=== PATIENT | male | born 1970 | race Caucasian/White ===

== ENCOUNTER 2017-06-02 23:26 | Emergency (ER) | payer OTHER ==
[~2017-06-02] VITALS: Ht 170.2 cm; Wt 105.6 kg
[2017-06-02 23:37] VITALS: TEMP 36.9; Ht 170.2 cm; Wt 105.6 kg
[2017-06-03] MEDS ORDERED: LIDOCAINE HCL 1% 20 ML VIAL ONE (00:18)
[2017-06-03] MEDS ORDERED: CEPHALEXIN 500MG HOME PACK 1 EA BTL PO ONE (01:45)
[2017-06-03] MEDS ORDERED: CEPH500C2 PO (01:52)
[2017-06-03 01:57] VITALS: BP 116/73; PULSE 82; O2SAT 99
--- NOTE | 2017-06-03 03:14 | EMERGENCY ROOM VISIT NOTE ---
History First contact with patient: 23:42 Chief Complaint: EAR PAIN Stated Complaint: SWELLING TO LT EAR, DISCOLORED History of Present Illness The patient is a 46 year old male who presents to the Emergency Room with complaints of left ear hematoma after he hit it on the wall when he tripped. He has had a prior hematoma to the left ear. Patient denies head injury, neck pain, chest pain, dyspnea, facial pain, inner ear pain, numbness, tingling. No other concerns per patient. No loss of consciousness. Review of Systems A 6 system review of systems was completed with positives and pertinent negatives listed in the HPI. Past Medical/Surgical History Nephrectomy Social History Smoking Status: Former Smoker Smokeless Tobacco Use: Yes Alcohol Use: occasionally Drug Use: none Marital Status: Housing Status: lives with family Occupation Status: employed Current/Historical Medications Scheduled Cephalexin Monohydrate (Keflex), 500 MG PO QID Physical Exam Vital Signs Date Time Temp Pulse Resp B/P (MAP) Pulse Ox O2 Delivery O2 Flow Rate FiO2 06/03/17 01:57 82 20 116/73 99 06/02/17 23:37 36.9 99 18 137/85 97 Room Air Physical Exam VITALS: Vitals are noted on the nurse's note and reviewed by myself. Vital signs stable. GENERAL: Pleasant male, in no acute distress, nondiaphoretic, well-developed well-nourished. SKIN: Capillary reflex less than 2 seconds. HEENT: Normocephalic. PERRLA. EOMI. Nares patent. Mucous membranes moist. Neck is supple without nuchal rigidity. EARS: Right External auditory canals clear, tympanic membrane pearly jackson without erythema or effusion: Left auricle with hematoma present extending to the canal, tympanic membrane pearly jackson without erythema or effusion no hemotympanum, no mastoid tenderness bilaterally HEART: Regular rate and rhythm without murmurs gallops or rubs. LUNGS: Clear to auscultation bilaterally without wheezes, rales or rhonchi. No retractions or accessory muscle use. MUSCULOSKELETAL: No gross musculoskeletal defects. NEURO: Patient was alert and oriented to person place and time. Normal sensation to light and sharp touch. No focal neurological deficits. Medical Decision & Procedures Medications Administered Medications (Trade) Dose Ordered Sig/Radha Route Start Time Stop Time Status Last Admin Dose Admin Cephalexin Monohydrate (Keflex 500MG Home Pack) 1 homepack NOW ONCE PO 06/03/17 01:45 06/03/17 01:46 DC 06/03/17 01:56 1 HOMEPACK Procedure Incision & Drainage Indication: Left auricle hematoma. Location: Left auricle Verbal consent was obtained after the risks and benefits were explained, including but not limited to bleeding, scarring, infection, pain, and bone/joint /nerve damage. At this time, the risks of the procedure are less than the risks of NOT performing the procedure. A time out was taken and the correct patient and site identified. The skin was prepped with betadine and a sterile field set. The ear was anesthetized with 1 ml of 1% lidocaine without epinephrine. The auricle was drained with an 18-gauge needle and copious amounts of blood was removed.. Packing placed and sutured for compression of the auricle and a compression gauze was placed. Detailed wound care instructions and signs and symptoms of worsening infection reviewed with the patient. No complications and the patient tolerated the procedure well. ED Course Prior records reviewed and summarized as above. Triage Nursing notes reviewed. Additional history obtained from family. The patient's history was concerning for auricle hematoma. Differential diagnosis: Etiologies such as hematoma, tympanic membrane rupture, cellulitis, abscess, as well as others were entertained.. Physical examination: The physical examination was consistent with auricle hematoma ER treatment provided: Drainage and packing as above, Keflex On reassessment the patient felt better. Diagnostics interpreted by me: Deferred I consulted oral plastics, Dr. Tran, and will follow-up with the patient outpatient next week. He recommends antibiotics and drainage and packing as above. This appears to be isolated left auricle hematoma.. Patient was started on antibiotics. The blood was removed and packing was placed. This was sutured down. Compression gauze was then placed. He tolerated procedure well. He was strongly encouraged to follow-up with orofacial plastics in a few days and to take medications as directed. He was advised to return immediately for fevers, pain, worsening signs or symptoms or as needed. By the evaluation outlined above emergent etiologies such as abscess, tympanic membrane rupture, as well as others were deemed relatively unlikely. The pt informed about the findings as listed above. All questions were answered and pleased with the treatment. Return instructions were outlined and the patient was discharged in stable condition. Outpatient prescription management: keflex Referral: The patient was orofacial plastics for follow-up in 2 to 3 days for a recheck of the current condition. Case reviewed with my attending Medical Decision as above Medication Reconcilliation Current Medication List: was personally reviewed by me Blood Pressure Screening Patient's blood pressure: Normal blood pressure Impression Primary Impression: Hematoma of auricle Departure Information Dispostion Home / Self-Care Condition GOOD Prescriptions Cephalexin Monohydrate (KEFLEX) 500 Mg Cap 500 MG PO QID for 6 Days, #24 CAP Prov: Jaleesa Espino .[place] 06/03/17 Referrals Justin Tran D.M.D. Forms WORK / SCHOOL INSTRUCTIONS, HOME CARE DOCUMENTATION FORM, IMPORTANT VISIT INFORMATION Patient Instructions My [facility] Additional Instructions Cephalexin(Keflex) 500mg: Take one pill four times daily for 7 days for your skin infection. All antibiotics can cause diarrhea. If this occurs and you feel worse or it does not resolve in 1-2 days follow up with your doctor or return to the Emergency Department as this could be signs of serious underlying problems. Any medication can cause an allergic reaction, stop the pills immediately and return to the ER for rash, hives, breathing difficulties, or swelling. Leave compression gauze in place. You can change out the 4 x 4 dressing if the bleeding soaks through. You then need to reapply the compression gauze. Follow up with oral facial plastics on Monday, call for an appointment. Sutures and packing gauze should repeat removed in 3-5 days. Return to ER sooner for fevers, redness, pain, worsening signs or symptoms or as needed. Problem Qualifiers Primary Impression: Hematoma of auricle Encounter type: initial encounter Laterality: left Qualified Codes: S00.432A - Contusion of left ear, initial encounter
== END 2017-06-03 01:59 | disposition home or self-care (01) ==
LOC: C.EDB 23:28
DX: S00.432A Contusion of left ear, initial encounter (principal); W22.01XA Walked into wall, initial encounter; Z87.891 Personal history of nicotine dependence

== ENCOUNTER → 2017-08-28 | Outpatient (CLI) | payer OTHER | END | disposition home or self-care (01) | LOC: C.LAB 20:07 | DX: Z02.83 Encounter for blood-alcohol and blood-drug test (principal) ==

== ENCOUNTER 2023-01-14 09:32 | Inpatient (IN) ==
[2023-01-14] MEDS ORDERED: SODIUM CHLORIDE 0.9% 1000ML 2,000 ML IV ONE (10:41)
[2023-01-14] MEDS ORDERED: ACETAMINOPHEN 1,000 MG/100 ML VIAL IV STA (10:41)
[2023-01-14 11:21] LABS: Hematocrit (blood only) 45.2 % (42.0-52.0); Hemoglobin 15.8 g/dl (14.0-18.0); Immature Granulocytes # (auto) 0.01 K/uL (0.01-0.20); Immature Granulocytes % (auto) 0.3 %; Lymphocytes # (auto) 0.68 K/uL (1.2-3.4); Lymphocytes % (auto) 17.5 %; Mean Corpuscular Hemoglobin 29.3 pg (25.0-34.0); Mean Corpuscular Volume 83.9 fL (80.0-100.0); Mean Platelet Volume 10.1 fL (9.4-12.4); Monocytes # (auto) 0.37 K/uL (0.11-0.59); Monocytes % (auto) 9.5 %; Neutrophils # (auto) 2.82 K/uL (1.40-6.50); Neutrophils % (auto) 72.7 %; Platelet Count 164 K/uL (130-400); RDW Coefficient of Variation 13.2 % (11.5-14.5); RDW Standard Deviation 40.2 fL (36.4-46.3); Red Blood Count 5.39 M/uL (4.70-6.10); White Blood Count 3.88 K/ul (4.8-10.8)
--- NOTE | 2023-01-14 11:30 | XRay Report ---
XR chest 1V portable HISTORY: Sepsis COMPARISON: None. FINDINGS: There are low lung volumes. No pneumothorax. No pleural effusions. The heart is enlarged. T here is mild central pulmonary vascular congestion without overt edema. No focal lung consolidations to suggest a pneumonia. IMPRESSION: Mild cardiomegaly with mild congestive change. ACT 112: Negative or not required by law. Electronically signed by: Florentino London M.D. 01/14/2023 11:29 AM
[2023-01-14 11:44] LABS: Albumin Level 4.5 gm/dl (3.4-5.0); BUN Creatinine Ratio 20.2 (10-20); Bilirubin Direct 0.2 mg/dl (0-0.2); Bilirubin,Total 0.7 mg/dl (0.2-1.0); Calcium 9.3 mg/dl (8.6-10.3); Creatinine Clr Calc Pharmacy 101.6 ml/min; Est GFR (African American) 95.9 ml/min; Est GFR (Non-African American) 82.7 ml/min; Magnesium 2.2 mg/dl (1.7-2.4); Phosphorus 2.5 mg/dl (2.5-4.9); Potassium 3.9 mmol/L (3.5-5.1); Total Protein 7.3 gm/dl (6.0-8.3)
[2023-01-14 11:47] LABS: Prothrombin Time 11.4 Seconds (9.0-12.0)
[2023-01-14 11:50] LABS: Troponin I High Sensitivity 3.9 pg/ml (0-20)
[2023-01-14 12:01] LABS: Lyme Ab IgG w/WB Rflx Negative (Negative)
[2023-01-14 12:06] LABS: Appearance Urine Clear (Clear); Bacteria Urine Automated Negative (Negative); Bilirubin Urine Negative (Negative); Blood Urine Negative (Negative); Color Urine Dark Yellow; Glucose Urine UA Negative (Negative); Ketones Urine 3+ (Negative); Leukocyte Esterase Urine Negative (Negative); Nitrite Urine Negative (Negative); Protein Urine 1+ (Negative); RBC Urine Automated 0-4 /hpf (0-4); Specific Gravity Urine 1.035 (1.000-1.030); Urobilinogen Urine Negative (Negative)
[2023-01-14] MEDS ORDERED: OPTIRAY 320 500ml IV ONE (12:07)
[2023-01-14 12:26] LABS: Lyme Ab IgM w/WB Rflx Equivocal (Negative)
[2023-01-14 12:37] LABS: Amphetamines+Metham, Urine Neg (Neg); Barbiturates, Urine Neg (Neg); Benzodiazepine, Urine Neg (Neg); Cocaine, Urine Neg (Neg); MDMA (Ecstacy), Urine Neg (Neg); Methadone, Urine Neg (Neg); Opiate, Urine Neg (Neg); Phencyclidine, Urine Neg (Neg)
[2023-01-14 13:00] LABS: Adenovirus PCR Not Detected (NotDetected); Bordetella parapertussis PCR Not Detected (NotDetected); Bordetella pertussis PCR Not Detected (NotDetected); Chlamydia pneumoniae PCR Not Detected (NotDetected); Coronavirus 229E PCR Not Detected (NotDetected); Coronavirus CoV-2 (COVID19)PCR Not Detected (NotDetected); Coronavirus HKU1 PCR Not Detected (NotDetected); Coronavirus NL63 PCR Not Detected (NotDetected); Coronavirus OC43PCR Not Detected (NotDetected); Human Metapneumovirus PCR Not Detected (NotDetected); Influenza A PCR Not Detected (NotDetected); Influenza B PCR Not Detected (NotDetected); Mycoplasma pneumoniae PCR Not Detected (NotDetected); Parainfluenza Virus 1 PCR Not Detected (NotDetected); Parainfluenza Virus 2 PCR Not Detected (NotDetected); Parainfluenza Virus 3 PCR Not Detected (NotDetected); Parainfluenza Virus 4 PCR Not Detected (NotDetected); Respiratory Syncytial VirusPCR Not Detected (NotDetected); Rhinovirus/Enterovirus PCR Not Detected (NotDetected)
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
[2023-01-14 13:44] LABS: C Reactive Protein 1.2 mg/dl (0-0.5)
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
[2023-01-14] MEDS ORDERED: LORazepam 1 MG TAB SL STA (16:02)
[2023-01-14] MEDS ORDERED: XYLOCAINE 1%/SOD BICARB 20 ML VIAL INFIL ONE (16:38)
[2023-01-14] MEDS ORDERED: LORazepam 2 MG/1 ML VIAL ONE (16:41)
--- NOTE | 2023-01-14 18:26 | Communication Note ---
Date of Service: January 14, 2023 I was consulted by Dr. Forte. The patient has had a change in mental status for a few days. He was attempting to obtain CSF to rule out meningitis but he was unsuccessful. I obtained the history from the patient's due to the patient being obtunded. The stated already providing consent for the spinal tap. I performed the spinal tap under sterile technique. I identified the L4-5 interspace while the patient was in the sitting position. I cleaned the area with duraprep. 1% lidocaine was injected at the site. a 22G quincke needle was advanced until CSF was obtained, attempt x 1. There was no heme or paresthesias. 4 vials of CSF were obtained. Afterwards, the patient was placed in the lateral position. The patient tolerated the procedure. Care was returned to the ER department.
[2023-01-14] MEDS ORDERED: cefTRIAXone SODIUM 2,000 MG/70 ML BAG IV STA (18:34)
[2023-01-14 18:43] LABS: Appearance CSF Hazy; CSF Count Tube # 3; Color CSF Colorless
[2023-01-14 18:44] LABS: Red Blood Cell CSF Auto 3 /uL (0-)
[2023-01-14 18:49] LABS: White Blood Cell CSF Auto 870 /uL (0-5)
[2023-01-14 18:51] LABS: CSF Glucose 49 mg/dl (40-70)
[2023-01-14 18:52] LABS: CSF Chemistry Tube # 1
[2023-01-14] MEDS ORDERED: DEXAMETHASONE SOD INJ 4 MG/ML VIAL IV STA (18:58)
--- NOTE | 2023-01-14 19:18 | XRay Report ---
XR hand LT min 3V routine CLINICAL HISTORY: Left hand pain. COMPARISON STUDY: None. FINDINGS: Suboptimal positioning of the left hand. No acute fracture or dislocation identified. There is mild soft tissue swelling. There are 2 punctate metallic foreign bodies within the soft tissues o f the thumb. Postoperative changes consistent with prior resection of the proximal carpal row. IMPRESSION: Suboptimal positioning of the left hand. However, no definite acute fracture or dislocat ion. ACT 112: Negative or not required by law. Electronically signed by: Florentino London M.D. 01/14/2023 7:17 PM
[2023-01-14] MEDS ORDERED: ACYCLOVIR SOD 850 MG in DEXTROSE 5% 250 ML IV ONE (19:30)
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
[2023-01-14 19:41] LABS: CSF Xanthrochromic No xanthochromia; Mononuclear WBC CSF Manual 99 %; Polynuclear WBC CSF Manual 1 %
[2023-01-14 20:18] LABS: Cryptococcus neoformans/ga PCR Not Detected (NotDetected); Cytomegalovirus PCR Not Detected (NotDetected); Enterovirus PCR Not Detected (NotDetected); Escherichia coli K1 PCR Not Detected (NotDetected); Haemophilius influenzae PCR Not Detected (NotDetected); Herpes Simplex Virus 1 PCR Not Detected (NotDetected); Herpes Simplex Virus 2 PCR Not Detected (NotDetected); Human Herpes Virus 6 PCR Not Detected (NotDetected); Human Parechovirus PCR Not Detected (NotDetected); Listeria monocytogenes PCR Not Detected (NotDetected); Neisseria meningitidis PCR Not Detected (NotDetected); Streptococcus agalactiae PCR Not Detected (NotDetected); Streptococcus pneumoniae PCR Not Detected (NotDetected); Varicella Zoster Virus PCR Not Detected (NotDetected)
[2023-01-14] MEDS ORDERED: HALOPERIDOL LACTATE 5 MG/ML 1 ML VIAL IV STA (20:37)
[2023-01-14] MEDS ORDERED: HALOPERIDOL LACTATE 5 MG/ML 1 ML VIAL IM STA ×2 (21:50)
[2023-01-14] MEDS ORDERED: HALOPERIDOL LACTATE 5 MG/ML 1 ML VIAL IM PRN (22:01)
[2023-01-14] MEDS: LACTATED RINGER'S 1,000 ML IV SCH (23:02)
[2023-01-14] MEDS ORDERED: OLANZapine 10 MG/2.1 ML SDV IM STA (23:45)
[2023-01-15] MEDS: LACTATED RINGER'S 1,000 ML IV SCH ×3 (05:43→22:40)
[2023-01-15 07:23] LABS: Hematocrit (blood only) 41.1 % (42.0-52.0); Hemoglobin 14.7 g/dl (14.0-18.0); Lymphocytes # (auto) 0.46 K/uL (1.2-3.4); Lymphocytes % (auto) 19.8 %; Mean Corpuscular Hemoglobin 29.5 pg (25.0-34.0); Mean Corpuscular Hgb Conc 35.8 g/dL (32.0-36.0); Mean Corpuscular Volume 82.5 fL (80.0-100.0); Mean Platelet Volume 9.6 fL (9.4-12.4); Monocytes # (auto) 0.11 K/uL (0.11-0.59); Monocytes % (auto) 4.7 %; Neutrophils # (auto) 1.75 K/uL (1.40-6.50); Neutrophils % (auto) 75.5 %; Platelet Count 154 K/uL (130-400); RDW Coefficient of Variation 13.1 % (11.5-14.5); Red Blood Count 4.98 M/uL (4.70-6.10); White Blood Count 2.32 K/ul (4.8-10.8)
[2023-01-15 07:38] LABS: Albumin Globulin Ratio 1.5 (0.9-2); Bilirubin,Total 0.6 mg/dl (0.2-1.0); C Reactive Protein 1.57 mg/dl (0-0.5); Calcium 8.7 mg/dl (8.6-10.3); Creatinine Clr Calc Pharmacy 116.9 ml/min; Est GFR (African American) 115.3 ml/min; Est GFR (Non-African American) 99.5 ml/min; Globulin 2.6 gm/dl (2.5-4.0); Magnesium 2.1 mg/dl (1.7-2.4); Phosphorus 3.7 mg/dl (2.5-4.9); Total Protein 6.6 gm/dl (6.0-8.3)
[2023-01-15 07:58] LABS: INR 1.1 (0.9-1.1); Prothrombin Time 11.8 Seconds (9.0-12.0)
[2023-01-15] MEDS ORDERED: DOXYCYCLINE HYCLATE 100 MG in DEXTROSE 5% 100 ML IV ONE (08:30)
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
--- NOTE | 2023-01-15 10:47 | Electrocardiogram Report ---
Test Reason : Blood Pressure : / mmHG Vent. Rate : 106 BPM Atrial Rate : 106 BPM P-R Int : 124 ms QRS Dur : 080 ms QT Int : 352 ms P-R-T Axes : 027 -13 005 degrees QTc Int : 467 ms Sinus tachycardia Poor R wave progression, consider anterior CT vs. lead placement vs. LVH Nonspecific T wave abnormality Abnormal ECG No previous ECGs available Confirmed by Zain Villanueva ([id number]) on 01/15/2023 10:47:16 AM Referred By: Confirmed By:Zain Villanueva
[2023-01-15] MEDS ORDERED: STAT IV Infusion **Titration per Protocol STA (11:50)
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
[2023-01-15] MEDS: dexMEDEtomidine 200 MCG/50 ML BAG IV SCH ×2 (12:37→17:09)
[2023-01-15] MEDS ORDERED: OPTIRAY 320 500ml IV ONE (13:29)
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
[2023-01-15] MEDS: ENOXAPARIN INJ 40 MG/0.4 ML SYR SQ SCH (15:40)
[2023-01-15] MEDS ORDERED: cefTRIAXone SODIUM 2,000 MG in DEXTROSE 5% 50 ML IV SCH (20:00)
[2023-01-15] MEDS: DOXYCYCLINE HYCLATE 100 MG in DEXTROSE 5% 100 ML IV SCH (20:15)
[2023-01-16] MEDS: dexMEDEtomidine 200 MCG/50 ML BAG IV SCH ×4 (01:20→20:19)
[2023-01-16 04:18] LABS: Hematocrit (blood only) 44.9 % (42.0-52.0); Hemoglobin 15.6 g/dl (14.0-18.0); Immature Granulocytes # (auto) 0.01 K/uL (0.01-0.20); Immature Granulocytes % (auto) 0.3 %; Lymphocytes # (auto) 0.91 K/uL (1.2-3.4); Lymphocytes % (auto) 23.6 %; Mean Corpuscular Hemoglobin 29.3 pg (25.0-34.0); Mean Corpuscular Hgb Conc 34.7 g/dL (32.0-36.0); Mean Corpuscular Volume 84.2 fL (80.0-100.0); Mean Platelet Volume 9.6 fL (9.4-12.4); Monocytes # (auto) 0.34 K/uL (0.11-0.59); Monocytes % (auto) 8.8 %; Neutrophils # (auto) 2.59 K/uL (1.40-6.50); Neutrophils % (auto) 67.3 %; Platelet Count 140 K/uL (130-400); RDW Coefficient of Variation 13.1 % (11.5-14.5); RDW Standard Deviation 40.3 fL (36.4-46.3); Red Blood Count 5.33 M/uL (4.70-6.10); White Blood Count 3.85 K/ul (4.8-10.8)
[2023-01-16 04:34] LABS: BUN Creatinine Ratio 16.3 (10-20); Calcium 8.6 mg/dl (8.6-10.3); Creatinine Clr Calc Pharmacy 119.6 ml/min; Est GFR (African American) 116.4 ml/min; Est GFR (Non-African American) 100.4 ml/min; Magnesium 2.2 mg/dl (1.7-2.4); Potassium 4.2 mmol/L (3.5-5.1)
[2023-01-16] MEDS: LACTATED RINGER'S 1,000 ML IV SCH ×2 (06:40→15:41)
--- NOTE | 2023-01-16 08:06 | Critical Care Progress Note ---
Date of Service January 16, 2023 Assessment & Plan (1) Rhabdomyolysis: (2) Leukopenia: (3) Encephalopathy acute: (4) Bicuspid aortic valve: (5) Meningitis: (6) Snoring: Plan Reason Critically Ill: 52-year-old male with suspected viral encephalitis PLAN: Neuro: Acute encephalopathy -Most consistent with viral encephalitis: Requesting West Nile, eastern equine encephalitis, and [place] testing -Monocytic pleocytosis rather elevated -Neurology following and requesting MRI, EEG -Patient will not remain still to obtain adequate imaging at this time -CTA of head and neck negative for any abnormality -Dexmedetomidine for agitation PRN Patient has not had any alcohol for 5 years. DTs not a possibility Resp: Tachypnea -There is no significant AA gradient, possibility of PE is low -Most likely consistent with underlying agitation CV: Bicuspid aortic valve -Following with primary care physician Fluids/Renal: Elevated CPK: -Trending down History of nephrectomy -Reports secondary to infection ID: Encephalitis with lymphopenia, monocytic pleocytosis -Suspect Lyme versus viral origin, bio fire meningitis panel negative, Lyme IgM equivocal, PCR testing pending -Lyme IgM equivocal -Continue doxycycline and Rocephin, previously given acyclovir however HSV PCR negative -HIV and RPR pending GI/Nutrition: Hypertriglyceridemia -Defer to outpatient Heme: Monitor H&H Endocrine: ICU hyperglycemia protocol --Prophylaxis VTE: Lovenox GI: None Lines: Peripheral Diet: N.p.o. Plan: In/out: -1.3 L, urine output [id number] Continue with Rocephin along with doxycycline We will try to get an opinion from ID today. Patient does have lymphopenia with monocytic infiltrate He has been afebrile. Continue with IV fluids We will add Tylenol as needed Case was discussed with patient's at bedside. I have personally spent 43 minutes of critical care time in the direct management of this patient. This is a life/limb threatening event. This includes time spent evaluating patient, direct bedside care, chart review, placing orders, interpretation of diagnostic studies, discussion with consultants, patient, and family members, as well as other required patient management activities. This time is exclusive of all separately billable procedures, and teaching time and separate from and in addition to any other critical care service time. Please note the above document was generated using voice recognition software. It may contain grammatical, syntax or spelling errors. Admission and Anticipated Discharge Date Admission Date: January 14, 2023 Subjective Patient seen and examined at bedside. He was on Precedex overnight 0.2. It was turned off to see how we will behave off of it He is tachypneic. He opens his eyes and nods yes or no. Denies any headache, no chest pain Denies any back pain right now, denies any hallucinations Review of Systems Review of Systems: All systems reviewed & are unremarkable except as noted in Subjective Physical Exam Physical Exam: Constitutional: No acute distress HEENT: EOMI, PERRLA Respiratory system: Decreased air entry bilaterally, no wheeze, no rhonchi, mild crackles bilateral lower lobes CVS: S1-S2 positive, no murmurs or gallops Abdomen: Soft, nontender, nondistended, positive bowel sounds x4 Extremities: +2 pulses bilaterally radialis/ dorsalis pedis, no cyanosis, no edema Neuro: Somnolent, opens his eyes and follows simple commands Psych: Restless mood and affect G/U: Positive [place] Skin: no rashes, warm and dry Lymphatic: no cervical or axillary lymphadenopathy Results & Data Results & Data Vital Signs (Past 12 Hours) Vital Signs Temp Pulse Resp BP Pulse Ox Pulse Ox O2 Del Method 01/16/23 06:00 96 H 30 H 168/96 H 94 Nasal Cannula 01/16/23 05:30 103 H 28 H 94 Nasal Cannula 01/16/23 05:00 102 H 30 H 168/92 H 94 Nasal Cannula 01/16/23 04:30 100 H 23 95 Nasal Cannula 01/16/23 04:00 36.7 C 102 H 28 H 154/93 H 96 Nasal Cannula 01/16/23 03:30 99 H 30 H 96 Nasal Cannula 01/16/23 03:00 105 H 27 H 139/91 97 Nasal Cannula 01/16/23 02:30 102 H 26 H 96 Nasal Cannula 01/16/23 02:00 89 26 H 131/81 97 Nasal Cannula 01/16/23 01:30 83 27 H 96 Nasal Cannula 01/16/23 01:00 87 30 H 125/92 96 Nasal Cannula 01/16/23 00:30 86 27 H 96 Nasal Cannula 01/16/23 00:00 37.1 C 76 26 H 138/88 95 Nasal Cannula 01/15/23 23:30 85 25 H 97 Nasal Cannula 01/15/23 23:00 84 29 H 146/89 H 98 Nasal Cannula 01/15/23 22:30 83 28 H 98 Nasal Cannula 01/15/23 22:00 73 27 H 132/89 98 Nasal Cannula 01/15/23 21:30 74 28 H 97 Nasal Cannula 01/15/23 21:28 98 01/15/23 21:00 72 24 128/78 97 Nasal Cannula 01/15/23 20:30 72 30 H 91 Room Air O2 Del Method O2 Flow Rate O2 Flow Rate 01/16/23 06:00 2 01/16/23 05:30 2 01/16/23 05:00 2 01/16/23 04:30 2 01/16/23 04:00 2 01/16/23 03:30 2 01/16/23 03:00 2 01/16/23 02:30 2 01/16/23 02:00 2 01/16/23 01:30 2 01/16/23 01:00 2 01/16/23 00:30 2 01/16/23 00:00 2 01/15/23 23:30 2 01/15/23 23:00 2 01/15/23 22:30 2 01/15/23 22:00 2 01/15/23 21:30 2 01/15/23 21:28 Nasal Cannula 2 01/15/23 21:00 2 01/15/23 20:30 Laboratory Results 01/16/23 03:56 01/16/23 03:56 Coding Level of Care Code 55951 CRITICAL CARE 1ST 30-74M Diagnoses Rhabdomyolysis M62.82 Leukopenia D72.810 Leukopenia type: lymphocytopenia Encephalopathy acute G93.40 Bicuspid aortic valve Q23.1 Meningitis G03.9 Snoring R06.83 Time Spent (min) 43 (2) Leukopenia Leukopenia type: lymphocytopenia Qualified Code(s): D72.810 - Lymphocytopenia
[2023-01-16] MEDS: DOXYCYCLINE HYCLATE 100 MG in DEXTROSE 5% 100 ML IV SCH ×2 (08:20→20:19)
[2023-01-16] MEDS: ENOXAPARIN INJ 40 MG/0.4 ML SYR SQ SCH (08:20)
[2023-01-16] MEDS ORDERED: ACETAMINOPHEN 1,000 MG/100 ML VIAL IV PRN (09:05)
[2023-01-16] MEDS: ACETAMINOPHEN 1,000 MG/100 ML VIAL IV PRN (09:15)
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
[2023-01-16] MEDS: cefTRIAXone SODIUM 2,000 MG in DEXTROSE 5% 50 ML IV SCH ×2 (09:57→21:29)
[2023-01-16] MEDS ORDERED: SUCCINYLCHOLINE CHLORIDE 20 MG/ML 10 ML VIAL IV ONE (10:51)
[2023-01-16] MEDS ORDERED: levoFLOXacin/D5W 750 MG/150 ML BAG IV SCH (11:00)
[2023-01-16] MEDS: AMPICILLIN 2,000 MG in SODIUM CHLOR 0.9% AD-VAN 100 ML IV SCH ×3 (13:15→19:38)
--- NOTE | 2023-01-16 14:24 | Electroencephalogram ---
EEG Procedure Note Date of Service January 16, 2023 Start / End Times Start Time: 13:27 End Time: 13:[address] David Garcia History A 52 year old male with acute encephalopathy. EEG performed for evaluaiton of epileptiform activity. Home Medication List Medication Instructions Recorded Confirmed Type acetaminophen 650 mg 650 mg PO Q8H PRN Pain 01/14/23 01/14/23 History tablet,extended release ibuprofen 200 mg tablet 400 mg PO Q8H PRN Pain 01/14/23 01/14/23 History naproxen 250 mg tablet 250 mg PO Q8H PRN Pain 01/14/23 01/14/23 History Inpatient Medication List Enoxaparin Sodium (Enoxaparin Inj 40 Mg/0.4 Ml Syr) 40 mg SQ QAM DANIAL Stop: 02/14/23 12:59 Last Admin: 01/16/23 08:20 Dose: 40 mg Documented By: Admin: 01/15/23 15:40 Dose: 40 mg Documented By: [id number] Lactated Ringer's (Lr) 1,000 mls @ 125 mls/hr IV .Q8H DANIAL Stop: 02/13/23 22:14 Last Admin: 01/16/23 06:40 Dose: 125 mls/hr Documented By: Infusion: 01/16/23 06:40 Dose: 125 mls/hr Documented By: Admin: 01/15/23 22:40 Dose: 125 mls/hr Documented By: Infusion: 01/15/23 22:20 Dose: 125 mls/hr Documented By: Admin: 01/15/23 14:20 Dose: 125 mls/hr Documented By: JBDanny Infusion: 01/15/23 13:43 Dose: 125 mls/hr Documented By: JBDanny Admin: 01/15/23 05:43 Dose: 125 mls/hr Documented By: Infusion: 01/15/23 05:43 Dose: 125 mls/hr Documented By: Admin: 01/14/23 23:02 Dose: 125 mls/hr Documented By: KAYLEE Acetaminophen (Ofirmev) 1,000 mg in 100 mls @ 400 mls/hr IV Q8H PRN PRN Reason: Pain or fever Stop: 01/19/23 09:00 Last Infusion: 01/16/23 09:31 Dose: 0 mls/hr Documented By: Admin: 01/16/23 09:15 Dose: 400 mls/hr Documented By: GPF Doxycycline Hyclate 100 mg/ (Dextrose) 110 mls @ 50 mls/hr IV Q12H DANIAL Stop: 01/17/23 20:59 Last Infusion: 01/16/23 10:26 Dose: 0 mls/hr Documented By: Admin: 01/16/23 08:20 Dose: 50 mls/hr Documented By: Infusion: 01/15/23 22:33 Dose: 0 mls/hr Documented By: Admin: 01/15/23 20:15 Dose: 50 mls/hr Documented By: SG Dexmedetomidine/Sodium Chloride (Precedex) 200 mcg in 50 mls @ 13.188 mls/hr IV .Q3H48M DANIAL; Protocol Stop: 01/19/23 11:59 Last Admin: 01/16/23 10:26 Dose: 0.4 mcg/kg/hr, 10.6 mls/hr Documented By: GPLeroy Co-signed By: BINHM Titration: 01/16/23 10:26 Dose: 0.5 mcg/kg/hr, 13.2 mls/hr Documented By: GPF Co-signed By: JLM Titration: 01/16/23 10:22 Dose: 0.5 mcg/kg/hr, 13.2 mls/hr Documented By: Titration: 01/16/23 10:01 Dose: 0.4 mcg/kg/hr, 10.6 mls/hr Documented By: Titration: 01/16/23 09:46 Dose: 0.3 mcg/kg/hr, 7.9 mls/hr Documented By: Titration: 01/16/23 07:48 Dose: 0 mcg/kg/hr, 0 mls/hr Documented By: Titration: 01/16/23 07:29 Dose: 0.15 mcg/kg/hr, 4 mls/hr Documented By: Admin: 01/16/23 01:20 Dose: 0.2 mcg/kg/hr, 5.3 mls/hr Documented By: SG Co-signed By: TMG Titration: 01/16/23 01:20 Dose: 0.2 mcg/kg/hr, 5.3 mls/hr Documented By: SG Co-signed By: TMG Titration: 01/15/23 19:15 Dose: 0.2 mcg/kg/hr, 5.3 mls/hr Documented By: EVA Co-signed By: [id number] Titration: 01/15/23 17:20 Dose: 0.2 mcg/kg/hr, 5.3 mls/hr Documented By: [id number] Admin: 01/15/23 17:09 Dose: 0.3 mcg/kg/hr, 7.9 mls/hr Documented By: [id number] Co-signed By: LINA Titration: 01/15/23 17:09 Dose: 0.3 mcg/kg/hr, 7.9 mls/hr Documented By: [id number] Co-signed By: HASEEBY Admin: 01/15/23 12:37 Dose: 0.3 mcg/kg/hr, 7.9 mls/hr Documented By: [id number] Co-signed By: SAM Ceftriaxone Sodium 2,000 mg/ (Dextrose) 70 mls @ 100 mls/hr IV Q12H DANIAL; Protocol Stop: 01/26/23 09:59 Last Infusion: 01/16/23 10:36 Dose: 0 mls/hr Documented By: Admin: 01/16/23 09:57 Dose: 100 mls/hr Documented By: JAMEL Ampicillin Sodium 2,000 mg/ (Sodium Chloride) 100 mls @ 200 mls/hr IV Q4H DANIAL; Protocol Stop: 01/26/23 11:29 Last Infusion: 01/16/23 13:52 Dose: 0 mls/hr Documented By: Admin: 01/16/23 13:15 Dose: 200 mls/hr Documented By: JAMEL Levofloxacin/Dextrose (Levaquin/D5w) 750 mg in 150 mls @ 100 mls/hr IV Q24H DANIAL; Protocol Stop: 01/26/23 10:59 Last Infusion: 01/16/23 13:16 Dose: 0 mls/hr Documented By: Admin: 01/16/23 11:09 Dose: 100 mls/hr Documented By: JAMEL Discontinued Medications Dexamethasone (Dexamethasone Sod Inj 4 Mg/Ml Vial) 10 mg IV NOW STA Stop: 01/14/23 18:59 Last Admin: 01/14/23 19:48 Dose: 10 mg Documented By: SMITA Haloperidol Lactate (Haloperidol Lactate 5 Mg/Ml 1 Ml Vial) 5 mg IM NOW STA Stop: 01/14/23 21:51 Last Admin: 01/14/23 21:55 Dose: 5 mg Documented By: KAYLEE Haloperidol Lactate (Haloperidol Lactate 5 Mg/Ml 1 Ml Vial) 1 mg IM Q4H PRN PRN Reason: delirium, agitation Stop: 02/13/23 22:00 Last Admin: 01/15/23 05:03 Dose: 1 mg Documented By: KAYLEE Sodium Chloride (Nss 1000ml) 2,000 mls @ 999 mls/hr IV .Q2H1M ONE Stop: 01/14/23 12:41 Last Infusion: 01/14/23 13:09 Dose: 0 mls/hr Documented By: Admin: 01/14/23 11:04 Dose: 999 mls/hr Documented By: CLAUDAI Acetaminophen (Ofirmev) 1,000 mg in 100 mls @ 400 mls/hr IV NOW STA Stop: 01/14/23 10:55 Last Infusion: 01/14/23 11:33 Dose: 0 mls/hr Documented By: Admin: 01/14/23 11:09 Dose: 400 mls/hr Documented By: CLAUDIA Ceftriaxone Sodium (Rocephin) 2,000 mg in 70 mls @ 100 mls/hr IV ONE STA; Protocol Stop: 01/14/23 19:15 Last Infusion: 01/14/23 20:22 Dose: 0 mls/hr Documented By: Admin: 01/14/23 19:34 Dose: 100 mls/hr Documented By: SMITA Acyclovir Sodium 850 mg/ (Dextrose) 267 mls @ 250 mls/hr IV NOW ONE; Protocol Stop: 01/14/23 20:34 Last Infusion: 01/14/23 21:02 Dose: 0 mls/hr Documented By: Admin: 01/14/23 19:57 Dose: 250 mls/hr Documented By: SMITA Doxycycline Hyclate 100 mg/ (Dextrose) 110 mls @ 50 mls/hr IV TODAY@0830 ONE Stop: 01/15/23 10:41 Last Infusion: 01/15/23 11:14 Dose: 0 mls/hr Documented By: [id number] Admin: 01/15/23 08:36 Dose: 50 mls/hr Documented By: PAUL Ioversol (Optiray 320 500ml) 118 ml IV ONCE ONE Stop: 01/14/23 12:08 Last Admin: 01/14/23 12:07 Dose: 118 ml Documented By: EDK Ioversol (Optiray 320 500ml) 115 ml IV ONCE ONE Stop: 01/15/23 13:30 Last Admin: 01/15/23 13:29 Dose: 115 ml Documented By: JAR Lidocaine HCl (Xylocaine 1%/Sod Bicarb 20 Ml Vial) Confirm Administered Dose 1 ml INFIL .STK-MED ONE Stop: 01/14/23 16:39 Last Admin: 01/14/23 16:42 Dose: 1 ml Documented By: REC Lorazepam (Lorazepam 1 Mg Tab) 1 mg SL NOW STA Stop: 01/14/23 16:03 Last Admin: 01/14/23 16:06 Dose: 1 mg Documented By: ASW Lorazepam (Lorazepam 2 Mg/1 Ml Vial) Confirm Administered Dose 2 mg .ROUTE .STK- MED ONE Stop: 01/14/23 16:42 Last Admin: 01/14/23 16:42 Dose: 1 mg Documented By: ASW Olanzapine (Olanzapine 10 Mg/2.1 Ml Sdv) 2.5 mg IM NOW STA Stop: 01/14/23 23:46 Last Admin: 01/15/23 00:20 Dose: 2.5 mg Documented By: MTR Description This is a 21 electrode EEG with a single channel dedicated to limited EKG. The electrodes were placed in accordance with the International 10-20 system. REPORT: At the onset of the EEG the patient is in an altered mental state. The background is symmetric and continous. There is loss of the normal anterior to posterior gradient. The background consist of 5-6 Hz theta activity with intermixed 2-3 Hz polymorphic delta activity. No stage II sleep transients are seen. Interpretation IMPRESSION: This is an abnormal routine EEG in a patient with altered mentation due to moderate generalized background slowing suggestive of a non specific encephalopathy. No electrographic seizures or epileptiform activity is seen.
[2023-01-16] MEDS ORDERED: RAPID SEQUENCE INDUCTION BAG ONE (23:40)
[2023-01-17] MEDS: LACTATED RINGER'S 1,000 ML IV SCH ×3 (00:16→18:34)
[2023-01-17] MEDS: AMPICILLIN 2,000 MG in SODIUM CHLOR 0.9% AD-VAN 100 ML IV SCH ×4 (00:17→12:41)
[2023-01-17] MEDS: fentaNYL citrate PF 100 MCG/2 ML VIAL IV PRN ×4 (00:17→23:14)
[2023-01-17] MEDS: dexMEDEtomidine 200 MCG/50 ML BAG IV SCH ×3 (00:25→07:13)
--- NOTE | 2023-01-17 00:25 | Communication Note ---
Date of Service: January 16, 2023 7445- Patient with decrease in spo2 and noted with sonorous respirations with shallow abdominal breathing, and less responsive. Attempted BIPAP with resultin g increase in spo2 but remains with poor VT ~200. ABG obtained with PH 7.018, and PaCO2 of >130, decision was made to intubate as optimizing BiPAP while prepping for intubation did not increase VT. Patient was intubated by Dr. Ordaz from [facility]- see separate procedure note. Patient was sedated with his Precedex infusion currently infusion and he was pharmacologically paralyzed with 160mg of Succinylcholine via Dr. Ordaz's orders. Patient was intubated with 8.0 ETT x1 attempt. Post intubation CXR is with appropriate ETT placement- will advance 1CM and adequate placement of OGT. Continue to trend EtCO2 and Pulse oximetry. Hypercarbic respiratory failure requiring intubation - wean ventilator settings as able - SBT and weaning trials when appropriate - No noted change in neurological exam- will re-evaluate with normalization of his ETCo2- consider CT head non-con- MRI with contrast in Am - Continue sedation with Precedex- Fentanyl adjunct if needed. has been updated- understands as she is a RN and voices no questions at this time. I have personally spent 30 minutes of critical care time in the direct management of this patient. This is a life/limb threatening event. This includes time spent evaluating patient, direct bedside care, chart review, placing orders, interpretation of diagnostic studies, discussion with consultants, and family members, as well as other required patient management activities. This time is exclusive of all separately billable procedures, and teaching time and separate from and in addition to any other critical care service time CC time 30 minutes Coding Level of Care Code 22190 CRITICAL CARE 1ST 30-74M
[2023-01-17] MEDS ORDERED: STAT IV Infusion **Titration per Protocol STA ×2 (00:59→13:01)
[2023-01-17] MEDS ORDERED: NOREPINEPHRINE/D5W 4 MG/250 ML IV ONE (01:01)
[2023-01-17 01:09] LABS: iSTAT Allen Test Pass; iSTAT Arterial Blood Gas HCO3 27 meg/L (19-24); iSTAT Arterial Blood Gas pCO2 46 mmHg (35-46); iSTAT Arterial Blood Gas pH 7.37 (7.35-7.45); iSTAT Arterial Blood Gas pO2 68 mmHg (80-95); iSTAT Carbon Dioxide 28 mmol/L (24-31); iSTAT FiO2 100 %; iSTAT Site R Radial
[2023-01-17] MEDS: NOREPINEPHRINE/D5W 4 MG/250 ML PLCT IV SCH ×2 (01:50→20:21)
[2023-01-17] MEDS: ACETAMINOPHEN 1,000 MG/100 ML VIAL IV PRN ×2 (01:51→10:29)
[2023-01-17] MEDS ORDERED: IBUPROFEN 800 MG TAB PO STA (01:59)
[2023-01-17 02:31] LABS: Basophils # (auto) 0.01 K/uL (0-0.2); Basophils % (auto) 0.1 %; Hematocrit (blood only) 45.6 % (42.0-52.0); Hemoglobin 15.6 g/dl (14.0-18.0); Immature Granulocytes # (auto) 0.06 K/uL (0.01-0.20); Immature Granulocytes % (auto) 0.7 %; Lymphocytes # (auto) 0.56 K/uL (1.2-3.4); Lymphocytes % (auto) 6.3 %; Mean Corpuscular Hemoglobin 29.1 pg (25.0-34.0); Mean Corpuscular Hgb Conc 34.2 g/dL (32.0-36.0); Mean Corpuscular Volume 85.1 fL (80.0-100.0); Mean Platelet Volume 9.7 fL (9.4-12.4); Monocytes # (auto) 0.62 K/uL (0.11-0.59); Neutrophils # (auto) 7.63 K/uL (1.40-6.50); Neutrophils % (auto) 85.9 %; Platelet Count 180 K/uL (130-400); RDW Coefficient of Variation 13.1 % (11.5-14.5); RDW Standard Deviation 40.3 fL (36.4-46.3); Red Blood Count 5.36 M/uL (4.70-6.10); White Blood Count 8.88 K/ul (4.8-10.8)
[2023-01-17 02:50] LABS: BUN Creatinine Ratio 12.8 (10-20); Calcium 8.7 mg/dl (8.6-10.3); Creatinine Clr Calc Pharmacy 93.5 ml/min; Est GFR (African American) 90.6 ml/min; Est GFR (Non-African American) 78.2 ml/min; Potassium 5.2 mmol/L (3.5-5.1)
[2023-01-17 04:26] LABS: iSTAT Allen Test Pass; iSTAT Art Bld Gas pCO2 Correct 27 mmHg (35-46); iSTAT Arterial Blood Gas HCO3 25 meg/L (19-24); iSTAT Arterial Blood Gas pCO2 26 mmHg (35-46); iSTAT Arterial Blood Gas pH 7.59 (7.35-7.45); iSTAT Arterial Blood Gas pO2 96 mmHg (80-95); iSTAT Arterial Blood Gas pO2 C 103; iSTAT Carbon Dioxide 25 mmol/L (24-31); iSTAT FiO2 50 %; iSTAT Hematocrit 41 % (42-52); iSTAT Hemoglobin 13.9 g/dl (14.0-18.0); iSTAT Potassium 4.3 mmol/L (3.3-5.0); iSTAT Site L Radial; iSTAT Sodium 139 mmol/L (135-144)
--- NOTE | 2023-01-17 06:17 | Emergency Department Note ---
ED Visit Note Endotracheal Intubation- I was requested to come to the ICU to perform endotracheal intubation Indication hypercapnic respiratory failure. The patient was on 100% oxygen via BiPAP prior to the procedure. He was switched to [id number]. Suction, airway equipment, RSI drugs, respiratory equipment, and appropriate personnel were prepared prior to the initiation of the procedure. A time out was taken. Induction was performed with 160 mg of IV succinylcholine. The patient had been on Precedex. After observing the clinical benefit of the medications, the airway was easily visualized utilizing a glide scope. A 8.0 size ETT tube was placed atraumatically to 25 cm using standard technique. The cuff inflated without signs of malfunction. There were bilateral breath sounds, positive colormetric change, no gastric sounds, a good capnography waveform, and post procedure pulse oximetry was 98%. There were no complications. .
--- NOTE | 2023-01-17 06:51 | XRay Report ---
XR chest 1V portable CLINICAL HISTORY: evaluate ETT placement and OGT placement COMPARISON STUDY: Chest CT January 14, 2023. Chest radiograph January 16, 2023. FINDINGS: Tip of endotracheal tube is 5.5 cm above the nelsy. Tip of nasogastric tube is below the l ower aspect of this image but at least within the distal body of the stomach. There is no pneumothora x. Small right pleural effusion is suspected. Right basilar opacity has increased. Linear left basila r opacities are noted. IMPRESSION: 1. Tip of endotracheal tube 5.5 cm above the nelsy. 2. Increase in right basilar opacity with volume loss. This could reflect right lower lobe and/or rig ht middle lobe collapse. An infectious process could appear similar. 3. Left basilar opacity which favors atelectasis. 4. Suspected small right pleural effusion. No pneumothorax. ACT 112: Negative or not required by law. Electronically signed by: Eric Reddy M.D. 01/17/2023 6:48 AM
--- NOTE | 2023-01-17 07:26 | Critical Care Progress Note ---
Date of Service January 17, 2023 Assessment & Plan (1) Rhabdomyolysis: (2) Leukopenia: (3) Encephalopathy acute: (4) Bicuspid aortic valve: (5) Meningitis: (6) Snoring: Plan Reason Critically Ill: 52-year-old male with suspected viral encephalitis PLAN: Neuro: Acute encephalopathy -Most consistent with viral encephalitis: Requesting West Nile, eastern equine encephalitis, and [place] testing -Monocytic pleocytosis rather elevated -Neurology following and requesting MRI, EEG -Patient will not remain still to obtain adequate imaging at this time -CTA of head and neck negative for any abnormality Patient has not had any alcohol for 5 years. DTs not a possibility Resp: -- VDRF Secondary to hypercapnic respiratory failure from altered mental status and history of MARCIO Continue with ventilatory support Keep RASS -1 CV: -- Shock Likely septic Continue with vasopressor support to keep MAP greater than 65 -- QTc prolonged QTC 573 on 01/17/2023 Bicuspid aortic valve -Following with primary care physician Fluids/Renal: -- FREEDOM Likely from hypotensive episode Monitor BUN/creatinine Avoid nephrotoxic medications Strict ins and outs -- Elevated CPK -Trending down History of nephrectomy -Reports secondary to infection ID: Encephalitis with lymphopenia, monocytic pleocytosis -Suspect Lyme versus viral origin, [facility] meningitis panel negative, Lyme IgM equivocal, PCR testing pending -Lyme IgM equivocal -Continue doxycycline and Rocephin, previously given acyclovir however HSV PCR negative -HIV and RPR pending GI/Nutrition: Hypertriglyceridemia -Defer to outpatient Heme: Monitor H&H Endocrine: ICU hyperglycemia protocol --Prophylaxis VTE: Lovenox GI: None Lines: Peripheral Diet: N.p.o. Plan: In/out: + 1.2 L, urine output 2200 AB.59/26/96 on PEEP 5, 50%, RR 26 Respiratory rate decreased to 20, FiO2 down to 40% Chest x-ray from today shows segmental collapse of the right lower lobe. I will start the patient on hypertonic saline nebulized and chest PT If there is still no improvement then bronchoscopy will be pursued I will start the patient on tube feeds Patient will be sent for MRI of the brain today Potassium was mildly elevated likely secondary to succinylcholine use. Repeat BMP later today to look at the potassium, continue with IV fluids but decrease rate to 75ml/hr QTc prolonged today. DC levofloxacin Case was discussed with patient's at bedside. I have personally spent 48 minutes of critical care time in the direct management of this patient. This is a life/limb threatening event. This includes time spent evaluating patient, direct bedside care, chart review, placing orders, interpretation of diagnostic studies, discussion with consultants, patient, and family members, as well as other required patient management activities. This time is exclusive of all separately billable procedures, and teaching time and separate from and in addition to any other critical care service time. Please note the above document was generated using voice recognition software. It may contain grammatical, syntax or spelling errors. Admission and Anticipated Discharge Date Admission Date: January 14, 2023 Subjective Patient seen and examined at bedside. No acute distress Patient was not on any sedation at the time of examination He was flickering his eyes spontaneously, not following any commands. Did grimace on pupillary exam Tmax 38.6 Intubated overnight for respiratory distress and hypercapnic respiratory failure Review of Systems Review of Systems: Unobtainable due to endotracheal tube Physical Exam Physical Exam: Constitutional: No acute distress HEENT: EOMI, PERRLA Respiratory system: Decreased air entry bilaterally, no wheeze, no rhonchi, mild crackles bilateral lower lobes CVS: S1-S2 positive, no murmurs or gallops Abdomen: Soft, nontender, nondistended, positive bowel sounds x4 Extremities: +2 pulses bilaterally radialis/ dorsalis pedis, no cyanosis, no edema Neuro: Breathing with the vent, spontaneously opening eyes, positive cough, positive gag, positive corneal Psych: Unable to assess G/U: Positive Aceves Skin: no rashes, warm and dry Lymphatic: no cervical or axillary lymphadenopathy Results & Data Results & Data Vital Signs (Past 12 Hours) Vital Signs Temp Pulse Resp BP Pulse Ox Pulse Ox O2 Del Method 01/17/23 07:05 58 L 01/17/23 02:30 38.6 C H 56 L 26 H 97/66 L 100 01/17/23 02:00 38.5 C H 63 22 104/71 100 01/17/23 01:46 38.2 C H 68 26 H 121/86 100 01/17/23 01:12 37.8 C H 53 L 21 87/56 L 99 01/17/23 06:00 37.6 C H 59 L 24 113/71 100 01/17/23 05:45 58 L 24 122/79 100 01/17/23 05:30 56 L 24 124/86 100 01/17/23 05:15 55 L 24 105/70 100 01/17/23 05:00 37.7 C H 62 24 103/70 100 01/17/23 04:45 57 L 24 101/73 100 01/17/23 04:30 60 24 101/67 99 01/17/23 04:20 61 24 99/65 L 99 01/17/23 04:10 59 L 24 119/72 100 01/17/23 04:00 38.1 C H 61 26 H 102/64 99 01/17/23 03:45 58 L 26 H 106/63 99 01/17/23 03:30 60 26 H 99/65 L 99 01/17/23 03:15 58 L 26 H 108/70 99 01/17/23 03:00 38.5 C H 56 L 26 H 100 01/17/23 02:20 01/17/23 04:08 58 L 24 100 01/17/23 01:00 37.8 C H 57 L 26 H 66/48 L 94 01/17/23 00:45 73 10 L 86/64 L 98 01/17/23 00:00 37.7 C H 114 H 1 L 152/105 H 95 01/16/23 23:30 71 41 H 172/130 H 87 L 01/16/23 23:00 73 39 H 186/99 H 89 L 01/16/23 19:30 Nasal Cannula 01/17/23 00:00 71 01/17/23 00:40 61 29 H 94 01/16/23 22:00 67 41 H 167/88 H 95 01/16/23 21:00 64 36 H 159/91 H 98 01/16/23 20:00 61 36 H 167/101 H 98 01/16/23 20:00 96 01/16/23 21:00 97 01/16/23 19:30 61 33 H 147/98 H 98 O2 Del Method O2 Flow Rate O2 Flow Rate FiO2 01/17/23 07:05 01/17/23 02:30 01/17/23 02:00 01/17/23 01:46 01/17/23 01:12 01/17/23 06:00 01/17/23 05:45 01/17/23 05:30 01/17/23 05:15 01/17/23 05:00 01/17/23 04:45 01/17/23 04:30 01/17/23 04:20 01/17/23 04:10 01/17/23 04:00 01/17/23 03:45 01/17/23 03:30 01/17/23 03:15 01/17/23 03:00 01/17/23 02:20 50 01/17/23 04:08 50 01/17/23 01:00 01/17/23 00:45 01/17/23 00:00 01/16/23 23:30 01/16/23 23:00 01/16/23 19:30 3 01/17/23 00:00 01/17/23 00:40 100 01/16/23 22:00 01/16/23 21:00 01/16/23 20:00 01/16/23 20:00 Nasal Cannula 3 01/16/23 21:00 Nasal Cannula 3 01/16/23 19:30 Laboratory Results 01/17/23 02:17 01/17/23 02:17 Coding Level of Care Code 84596 CRITICAL CARE EA ADD 30M Diagnoses Rhabdomyolysis M62.82 Leukopenia D72.810 Leukopenia type: lymphocytopenia Encephalopathy acute G93.40 Bicuspid aortic valve Q23.1 Meningitis G03.9 Snoring R06.83 Time Spent (min) 48 (2) Leukopenia Leukopenia type: lymphocytopenia Qualified Code(s): D72.810 - Lymphocytopenia
[2023-01-17] MEDS ORDERED: SODIUM CHLOR 7% 4 ML NEB ONE (07:40)
--- NOTE | 2023-01-17 07:58 | XRay Report ---
XR chest 1V portable HISTORY: eval for any opacities - hypoxia COMPARISON: Chest 01/14/2023. FINDINGS: No pneumothorax. The cardiac silhouette remains borderline enlarged. There are bibasilar li near densities noted. Small bilateral pleural effusions are suspected. There is mild elevation right hemidiaphragm which could represent a subpulmonic effusion. The upper lung zones remain clear. IMPRESSION: 1. Elevation of the right hemidiaphragm which could be due to a subpulmonic effusion. 2. Bibasilar densities nonspecific but may represent atelectasis. A pneumonia could also have a simil ar appearance. This has progressed within the right lung base. 3. Small bilateral pleural effusions are noted. ACT 112: Negative or not required by law. Electronically signed by: Florentino London M.D. 01/17/2023 7:57 AM
--- NOTE | 2023-01-17 08:27 | Electrocardiogram Report ---
Test Reason : Blood Pressure : / mmHG Vent. Rate : 056 BPM Atrial Rate : 056 BPM P-R Int : 118 ms QRS Dur : 084 ms QT Int : 594 ms P-R-T Axes : 024 027 020 degrees QTc Int : 573 ms Sinus bradycardia T wave abnormality, consider anterior ischemia Prolonged QT Abnormal ECG When compared with ECG of 14-JAN-2023 10:47, Vent. rate has decreased BY 50 BPM T wave inversion now evident in Anterior leads QT has lengthened Confirmed by Kam Darden ([id number] on 01/17/2023 8:27:32 AM Referred By: REFERRED SELF Confirmed By:Kam Darden
[2023-01-17 09:28] LABS: iSTAT Allen Test Pass; iSTAT Art Bld Gas pCO2 Correct 38 mmHg (35-46); iSTAT Art Bld Gas pH Corrected 7.456 (7.35-7.45); iSTAT Arterial Blood Gas HCO3 27 meg/L (19-24); iSTAT Arterial Blood Gas pCO2 37 mmHg (35-46); iSTAT Arterial Blood Gas pH 7.47 (7.35-7.45); iSTAT Arterial Blood Gas pO2 74 mmHg (80-95); iSTAT Arterial Blood Gas pO2 C 78; iSTAT Carbon Dioxide 28 mmol/L (24-31); iSTAT FiO2 50 %; iSTAT Hematocrit 39 % (42-52); iSTAT Hemoglobin 13.3 g/dl (14.0-18.0); iSTAT Potassium 3.7 mmol/L (3.3-5.0); iSTAT Site R Radial; iSTAT Sodium 141 mmol/L (135-144)
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
[2023-01-17] MEDS: cefTRIAXone SODIUM 2,000 MG in DEXTROSE 5% 50 ML IV SCH ×2 (10:17→21:02)
[2023-01-17] MEDS: DOXYCYCLINE HYCLATE 100 MG in DEXTROSE 5% 100 ML IV SCH ×2 (10:17→20:21)
[2023-01-17] MEDS: ENOXAPARIN INJ 40 MG/0.4 ML SYR SQ SCH (10:17)
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
[2023-01-17] MEDS: TUBE FEEDING WATER FLUSH OG SCH ×4 (12:41→21:58)
[2023-01-17] MEDS: PANTOprazole 40 MG in SYRINGE 0 ML IV SCH (12:41)
[2023-01-17] MEDS ORDERED: PROPOFOL BOLUS FROM BAG IV PRN (13:01)
--- NOTE | 2023-01-17 13:17 | XRay Report ---
XR chest 1V portable HISTORY: Respiratory failure. Follow-up. COMPARISON: Chest 01/17/2023. FINDINGS: The endotracheal tube terminates approximately 2 cm from the nelsy. The nasogastric tube t erminates in the distal stomach/pylorus. No pneumothorax. There are low lung volumes. Trace bilateral pleural effusions are again noted. Right basilar airspace opacity and left basilar linear densities remain unchanged. IMPRESSION: 1. Satisfactory support line placement. 2. No change in the bibasilar airspace opacities most pronounced on the right. This could be due to a spiration. 3. Trace bilateral pleural effusions again noted. ACT 112: Negative or not required by law. Electronically signed by: Florentino London M.D. 01/17/2023 1:15 PM
[2023-01-17] MEDS: MAGNESIUM SULFATE / D5W 1 GM/100 ML BAG IV SCH ×2 (13:26→15:38)
[2023-01-17] MEDS: propofoL 1,000 MG/100 ML VIAL IV SCH ×2 (13:58→21:22)
[2023-01-17] MEDS ORDERED: GADOBUTROL 65ML VIAL IV ONE (14:30)
--- NOTE | 2023-01-17 14:47 | Magnetic Resonance Report ---
MRI OF THE BRAIN COMBO CLINICAL HISTORY: Encephalopathy. COMPARISON STUDY: CT of the brain dated 01/14/2023. TECHNIQUE: MRI of the brain was performed utilizing various T1 and T2-weighted sequences in the axial , sagittal, and coronal planes. Contrast-enhanced sequences were acquired following the administratio n of 10.3 cc of Gadavist. FINDINGS: Brain parenchyma: There is minimal microangiopathic change The brain parenchyma is otherwise normal i n appearance. There is no hemorrhage or mass effect. There is no restricted diffusion to suggest acut e ischemia. No enhancing mass lesion is identified on the postcontrast images. Pro-white matter diff erentiation is preserved. No extra-axial fluid collection is seen. The cerebellar tonsils are normal in configuration. Ventricles, sulci, and cisterns: Normal in configuration. Pituitary and sella: Unremarkable. Intracranial vasculature: Normal flow voids are maintained at the skull base. Orbits: The bony orbits are grossly intact. Orbital contents are normal in appearance. Sinuses and mastoids: There is [id number] mucosal thickening within the ethmoid, sphenoid, and left maxillary sinuses. There are trace mastoid effusions. Secretions are noted in the pharynx. Calvarium: Unremarkable. Cervical cord: Partially visualized cervical spinal cord is normal in morphology and signal intensity . IMPRESSION: No acute intracranial abnormality. ACT 112: Negative or not required by law. Electronically signed by: Dom Pelayo M.D. 01/17/2023 2:46 PM
[2023-01-17] MEDS ORDERED: MIDAZOLAM HCL 5 MG/ML 2ML VIAL ONE (14:51)
[2023-01-17] MEDS ORDERED: MIDAZOLAM HCL 1 MG/ML 2ML VIAL IV STA (15:36)
--- NOTE | 2023-01-17 15:36 | Procedure Note ---
Procedure Note Date of Service January 17, 2023 Note PREOPERATIVE DIAGNOSIS: Collapse of the right lower lobe POSTOPERATIVE DIAGNOSIS: Mucous plugging of the right middle and right lower lobe PROCEDURE PERFORMED: Flexible fiberoptic bronchoscopy with bronchoalveolar lavage COMPLICATIONS: None. INDICATION: Right lower lobe collapse PROCEDURE: After obtaining an informed consent from patient's , patient was put on 100% while he was on the ventilator.. The patient blood pressure, heart rate, and respiratory rate monitoring applied and monitored continuously throughout the procedure. Subsequent to this, the patient was premedicated with 2 mg of midazolam and 50 mcg of fentanyl The bronchoscope was advanced through the ET tube. Thick secretions were appreciated in the ET tube as well as right main The trachea appeared sharp.The bronchoscope was then advanced through the nelsy, which was sharp. Mucous plugs was appreciated at RBI. It was thick and difficult to suction. Mucomyst 20% for mL was used to lyse the phlegm which was suctioned out. The scope was then advanced into the right main stem and each segment, subsegement in the right upper lobe, right middle lobe and right lower lobe were visualized. There was moderate amount of thick yellowish-green secretions which were suctioned out. There were no other findings including evidence of mass, anatomic distortions, or hemorrhage. The bronchoscope was subsequently withdrawn and advanced into the left mainstem. Again, each segment and subsegment was well visualized. No specific masses or other lesions were identified throughout the tracheobronchial tree on the left. There was minimal amount of yellowish-green secretion in the left lower lobe which were suctioned out The bronchoscope was then wedged in the right lower lobe anterior segment and bronchoalveolar lavage samples were obtained. 80 ml of saline was instilled and 30 ml of fluid was aspirated back.The bronchoscope was withdrawn and the area was suctioned clear. The bronchoscope was then withdrawn to the mainstem. The area was suctioned clear. The bronchoscope was then withdrawn. The patient tolerated the procedure well without evidence of desaturation or complications. Bronchoalveolar lavage samples were sent for cell count, Gram stain and bacterial culture, AFB culture and smear, fungal culture and smear and cytology. Recommendations: Follow-up micro and cytology Follow-up chest x-ray Please note the above document was generated using voice recognition software. It may contain grammatical, syntax or spelling errors.Any formal questions or concerns about the content, text or information contained within the body of this dictation should be directly addressed to the provider for clarification. Coding CPT Codes Pulmonary/Thoracic - Pulmonary and Thoracic: 24225 Bronchoscopy, clear airways ([id number]) Pulmonary/Thoracic - Pulmonary and Thoracic: 79944 Dx bronchoscopy/BAL ([id number]) [facility] – [place] Procedure Codes (Charges) Pulmonary/Thoracic Procedure 1: Pulmonary and Thoracic: 51366 Bronchoscopy, clear airways Procedure 2: Pulmonary and Thoracic: 29578 Dx bronchoscopy/BAL
[2023-01-17 15:50] LABS: Calcium 8.6 mg/dl (8.6-10.3); Est GFR (African American) 100.6 ml/min; Est GFR (Non-African American) 86.8 ml/min; Magnesium 2.1 mg/dl (1.7-2.4); Phosphorus 2.4 mg/dl (2.5-4.9)
--- NOTE | 2023-01-17 15:56 | Communication Note ---
Date of Service: January 17, 2023 Patient remains intubated secondary to altered mental status from presumed meningitis/encephalitis. No evidence however, of brain parenchymal changes on MRI. EEG reveals expected slowing consistent with encephalopathy. Neurologic prognosis is certainly optimistic given the negative MRI. Continue workup and abx treatment per ID. We will continue to follow.
--- NOTE | 2023-01-17 16:10 | XRay Report ---
XR chest 1V portable HISTORY: Post Bronchoscopy COMPARISON: Chest 01/17/2023. FINDINGS: Endotracheal tube terminates approximately 3 cm from the nelsy. The nasogastric tube termi nates below the diaphragm. The tip is not included on this study. There are surgical clips within lef t upper quadrant. There are low lung volumes. No pneumothorax. The cardiac silhouette remains mildly enlarged. There is mild central pulmonary vascular congestion without overt edema. Patchy bibasilar d ensities persist. Suspect trace bilateral pleural effusions. IMPRESSION: 1. Satisfactory support line placement. 2. No change in the patchy bibasilar densities. 3. No pneumothorax. ACT 112: Negative or not required by law. Electronically signed by: Florentino London M.D. 01/17/2023 4:09 PM
[2023-01-17] MEDS ORDERED: SODIUM PHOSPHATE 3 MMOL/1 ML INFUSION IV STA (16:39)
[2023-01-17] MEDS ORDERED: SODIUM PHOSPHATE 15 MMOL in DEXTROSE 5% 250 ML IV ONE (16:45)
[2023-01-17] MEDS: SODIUM CHLOR 7% 4 ML NEB NEB SCH (19:30)
[2023-01-17 21:17] LABS: Eosinophil Body Fluid Man 2 %; Fluid Mono/Macrophage 3 %; Lymphocyte Body Fluid Man 1 %; Neutrophil Body Fluid Man 94 %
[2023-01-18] MEDS: fentaNYL citrate PF 100 MCG/2 ML VIAL IV PRN ×3 (01:21→08:00)
[2023-01-18] MEDS: TUBE FEEDING WATER FLUSH OG SCH ×6 (02:30→22:54)
[2023-01-18] MEDS: LACTATED RINGER'S 1,000 ML IV SCH ×2 (03:14→20:47)
[2023-01-18] MEDS: propofoL 1,000 MG/100 ML VIAL IV SCH (05:31)
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
[2023-01-18] MEDS: SODIUM CHLOR 7% 4 ML NEB NEB SCH ×2 (07:23→19:59)
[2023-01-18] MEDS: ACETAMINOPHEN 1,000 MG/100 ML VIAL IV PRN ×2 (07:55→16:26)
[2023-01-18] MEDS: DOXYCYCLINE HYCLATE 100 MG in DEXTROSE 5% 100 ML IV SCH ×2 (07:55→20:48)
[2023-01-18] MEDS: MULTI VIT W/MINERALS LIQUID 15 ML UDP PO SCH (07:56)
[2023-01-18] MEDS: ENOXAPARIN INJ 40 MG/0.4 ML SYR SQ SCH (07:56)
--- NOTE | 2023-01-18 08:14 | Electrocardiogram Report ---
Test Reason : Blood Pressure : / mmHG Vent. Rate : 112 BPM Atrial Rate : 112 BPM P-R Int : 162 ms QRS Dur : 088 ms QT Int : 344 ms P-R-T Axes : 031 002 015 degrees QTc Int : 469 ms Sinus tachycardia Poor R wave progression, consider anterior NC vs. lead placement vs. LVH Abnormal ECG When compared with ECG of 17-JAN-2023 06:29, Vent. rate has increased BY 56 BPM T wave inversion no longer evident in Anterior leads Confirmed by Kam Darden ([id number]) on 01/18/2023 8:14:05 AM Referred By: REFERRED SELF Confirmed By:Kam Darden
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
--- NOTE | 2023-01-18 08:22 | XRay Report ---
SINGLE VIEW CHEST CLINICAL HISTORY: Respiratory failure. FINDINGS: 2 AP, portable, upright chest radiographs are compared to study dated 01/17/2023. Correlatio n is made with chest CT dated 01/14/2023. An endotracheal tube and enteric tube are unchanged in posit ion. The cardiomediastinal silhouette is top normal for projection. There are low lung volumes with d ependent atelectasis. Suspect trace pleural effusions. No pneumothorax is seen. The bony thorax is gr ossly intact. IMPRESSION: 1. Stable lines and tubes. 2. Low lung volumes with dependent atelectasis. 3. Suspect trace pleural effusions. ACT 112: Negative or not required by law. Electronically signed by: Dom Pelayo M.D. 01/18/2023 8:20 AM
[2023-01-18 08:52] LABS: Basophils # (auto) 0.01 K/uL (0-0.2); Basophils % (auto) 0.2 %; Eosinophils # (auto) 0.03 K/uL (0-0.50); Eosinophils % (auto) 0.6 %; Hematocrit (blood only) 41.9 % (42.0-52.0); Hemoglobin 14.8 g/dl (14.0-18.0); Immature Granulocytes # (auto) 0.03 K/uL (0.01-0.20); Immature Granulocytes % (auto) 0.6 %; Lymphocytes # (auto) 0.82 K/uL (1.2-3.4); Lymphocytes % (auto) 15.2 %; Mean Corpuscular Hemoglobin 28.7 pg (25.0-34.0); Mean Corpuscular Hgb Conc 35.3 g/dL (32.0-36.0); Mean Corpuscular Volume 81.4 fL (80.0-100.0); Mean Platelet Volume 9.9 fL (9.4-12.4); Monocytes # (auto) 0.36 K/uL (0.11-0.59); Monocytes % (auto) 6.7 %; Neutrophils # (auto) 4.14 K/uL (1.40-6.50); Neutrophils % (auto) 76.7 %; Platelet Count 144 K/uL (130-400); RDW Coefficient of Variation 12.7 % (11.5-14.5); RDW Standard Deviation 37.8 fL (36.4-46.3); Red Blood Count 5.15 M/uL (4.70-6.10); White Blood Count 5.39 K/ul (4.8-10.8)
[2023-01-18 09:09] LABS: Albumin Level 3.5 gm/dl (3.4-5.0); Bilirubin,Total 0.6 mg/dl (0.2-1.0); Calcium 8.8 mg/dl (8.6-10.3); Magnesium 2.1 mg/dl (1.7-2.4); Potassium 3.4 mmol/L (3.5-5.1)
[2023-01-18 09:15] LABS: Albumin Globulin Ratio 1.3 (0.9-2); BUN Creatinine Ratio 18.9 (10-20); Est GFR (African American) 123.8 ml/min; Est GFR (Non-African American) 106.8 ml/min; Globulin 2.8 gm/dl (2.5-4.0); Phosphorus 2.3 mg/dl (2.5-4.9); Total Protein 6.3 gm/dl (6.0-8.3)
[2023-01-18] MEDS ORDERED: POTASSIUM PHOS 3 MMOL/1 ML INFUSION IV STA (09:18)
[2023-01-18] MEDS ORDERED: POTASSIUM PHOSPHATE 24 MMOL in SODIUM CHLORIDE 0.9% 500 ML IV ONE (09:30)
--- NOTE | 2023-01-18 09:35 | Infectious Disease Progress Nt ---
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 Sodium Chloride (Sodium Chlor 7% 4 Ml Neb) 4 ml NEB BIDR DANIAL Stop: 02/16/23 18:59 Last Admin: 01/18/23 07:23 Dose: 4 ml Sterile Water (Tube Feeding Water Flush) 100 ml OG Q4H DANIAL Stop: 02/16/23 10:29 Last Admin: 01/18/23 05:32 Dose: 100 ml
[2023-01-18] MEDS ORDERED: fentaNYL BOLUS from BAG IV PRN (09:48)
[2023-01-18] MEDS ORDERED: STAT IV Infusion **Titration per Protocol STA (09:48)
[2023-01-18] MEDS ORDERED: fentaNYL citrate 2,500 MCG/250 ML BAG IV SCH (10:00)
[2023-01-18] MEDS: MAGNESIUM SULFATE / D5W 1 GM/100 ML BAG IV SCH ×2 (10:26→12:30)
[2023-01-18] MEDS: PANTOprazole 40 MG in SYRINGE 0 ML IV SCH (10:26)
[2023-01-18] MEDS: cefTRIAXone SODIUM 2,000 MG in DEXTROSE 5% 50 ML IV SCH ×2 (10:26→20:48)
[2023-01-18] MEDS: ICU ELECTROLYTE REPLACEMENT PROTOCOL SCH (15:53)
[2023-01-19] MEDS: TUBE FEEDING WATER FLUSH OG SCH ×6 (01:40→22:30)
[2023-01-19] MEDS: PEPTAMEN INTENSE VHP 1.0 CAL 1,000 ML BAG OG SCH ×2 (01:41→22:34)
[2023-01-19 05:27] LABS: Babesia microti DNA Not Detected (Not Detected)
[2023-01-19 05:48] LABS: BUN Creatinine Ratio 18.8 (10-20); C Reactive Protein 5.34 mg/dl (0-0.5); Calcium 8.6 mg/dl (8.6-10.3); Est GFR (African American) 116.9 ml/min; Est GFR (Non-African American) 100.9 ml/min; Magnesium 2.2 mg/dl (1.7-2.4); Phosphorus 3.5 mg/dl (2.5-4.9); Potassium 3.8 mmol/L (3.5-5.1)
[2023-01-19] MEDS: ICU ELECTROLYTE REPLACEMENT PROTOCOL SCH ×2 (06:17→19:19)
[2023-01-19] MEDS: POTASSIUM CHLORIDE 20 MEQ/15 ML UDC NG SCH ×2 (06:31→10:13)
[2023-01-19] MEDS: SODIUM CHLOR 7% 4 ML NEB NEB SCH ×2 (07:25→19:33)
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
[2023-01-19] MEDS ORDERED: FUROSEMIDE 40 MG/4 ML VIAL IV ONE (07:45)
[2023-01-19 07:57] LABS: 18KDIGG Band NON-REACTIVE; 23KDIGG Band NON-REACTIVE; 23KDIGM Band REACTIVE; 28KDIGG Band NON-REACTIVE; 30KDIGG Band NON-REACTIVE; 39KDIGG Band NON-REACTIVE; 39KDIGM Band NON-REACTIVE; 41KDIGG Band NON-REACTIVE; 41KDIGM Band NON-REACTIVE; 45KDIGG Band NON-REACTIVE; 58KDIGG Band NON-REACTIVE; 66KDIGG Band NON-REACTIVE; 93KDIGG Band NON-REACTIVE; Lyme Antibodies, WB IgG NEGATIVE (NEGATIVE); Lyme Antibodies, WB IgM NEGATIVE (NEGATIVE)
[2023-01-19] MEDS: ENOXAPARIN INJ 40 MG/0.4 ML SYR SQ SCH (08:13)
[2023-01-19] MEDS: DOXYCYCLINE HYCLATE 100 MG in DEXTROSE 5% 100 ML IV SCH ×2 (08:14→22:27)
[2023-01-19] MEDS: MULTI VIT W/MINERALS LIQUID 15 ML UDP PO SCH (08:14)
[2023-01-19 08:25] LABS: Basophils # (auto) 0.01 K/uL (0-0.2); Basophils % (auto) 0.2 %; Eosinophils # (auto) 0.09 K/uL (0-0.50); Eosinophils % (auto) 1.9 %; Hematocrit (blood only) 40.8 % (42.0-52.0); Hemoglobin 14.1 g/dl (14.0-18.0); Immature Granulocytes # (auto) 0.03 K/uL (0.01-0.20); Immature Granulocytes % (auto) 0.6 %; Lymphocytes # (auto) 0.93 K/uL (1.2-3.4); Lymphocytes % (auto) 19.4 %; Mean Corpuscular Hemoglobin 29.4 pg (25.0-34.0); Mean Corpuscular Hgb Conc 34.6 g/dL (32.0-36.0); Mean Platelet Volume 10.2 fL (9.4-12.4); Monocytes # (auto) 0.31 K/uL (0.11-0.59); Monocytes % (auto) 6.5 %; Neutrophils # (auto) 3.42 K/uL (1.40-6.50); Neutrophils % (auto) 71.4 %; Platelet Count 150 K/uL (130-400); RDW Coefficient of Variation 12.9 % (11.5-14.5); RDW Standard Deviation 40.1 fL (36.4-46.3); White Blood Count 4.79 K/ul (4.8-10.8)
--- NOTE | 2023-01-19 08:28 | Electrocardiogram Report ---
Test Reason : Blood Pressure : / mmHG Vent. Rate : 086 BPM Atrial Rate : 086 BPM P-R Int : 130 ms QRS Dur : 084 ms QT Int : 398 ms P-R-T Axes : 039 022 032 degrees QTc Int : 476 ms Normal sinus rhythm Normal ECG When compared with ECG of 18-JAN-2023 05:32, No significant change was found Confirmed by Kam Darden ([id number]) on 01/19/2023 8:27:48 AM Referred By: REFERRED SELF Confirmed By:Kam Darden
--- NOTE | 2023-01-19 09:09 | XRay Report ---
XR chest 1V portable HISTORY: while intubated- eval tubes/lines and lung narayan COMPARISON: Chest 01/18/2023. FINDINGS: Endotracheal tube terminates 1.6 cm and the nelsy. Nasogastric tube terminates below the d iaphragm. The tip is not included on this study. No pneumothorax. Bibasilar linear densities and trac e bilateral pleural effusions persist. The heart remains mildly enlarged. There is mild central pulmo nary vascular congestion without overt edema. IMPRESSION: 1. Satisfactory support line placement. 2. Bibasilar densities and trace bilateral pleural effusions persist. ACT 112: Negative or not required by law. Electronically signed by: Florentino London M.D. 01/19/2023 9:08 AM
[2023-01-19] MEDS: cefTRIAXone SODIUM 2,000 MG in DEXTROSE 5% 50 ML IV SCH ×2 (10:10→23:55)
[2023-01-19] MEDS: PANTOprazole 40 MG in SYRINGE 0 ML IV SCH (10:11)
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
[2023-01-20] MEDS: TUBE FEEDING WATER FLUSH OG SCH ×6 (02:30→21:58)
[2023-01-20 04:09] LABS: iSTAT Allen Test Pass; iSTAT Art Bld Gas pCO2 Correct 46 mmHg (35-46); iSTAT Art Bld Gas pH Corrected 7.417 (7.35-7.45); iSTAT Arterial Blood Gas HCO3 29 meg/L (19-24); iSTAT Arterial Blood Gas pCO2 45 mmHg (35-46); iSTAT Arterial Blood Gas pH 7.42 (7.35-7.45); iSTAT Arterial Blood Gas pO2 83 mmHg (80-95); iSTAT Arterial Blood Gas pO2 C 86; iSTAT Carbon Dioxide 30 mmol/L (24-31); iSTAT FiO2 30 %; iSTAT Hematocrit 42 % (42-52); iSTAT Hemoglobin 14.3 g/dl (14.0-18.0); iSTAT Potassium 4.2 mmol/L (3.3-5.0); iSTAT Site L Radial; iSTAT Sodium 141 mmol/L (135-144)
[2023-01-20 06:00] LABS: Calcium 9.5 mg/dl (8.6-10.3); Creatinine Clr Calc Pharmacy 138.2 ml/min; Est GFR (African American) 123.1 ml/min; Est GFR (Non-African American) 106.2 ml/min; Magnesium 2.3 mg/dl (1.7-2.4); Phosphorus 3.9 mg/dl (2.5-4.9); Potassium 4.2 mmol/L (3.5-5.1)
[2023-01-20 06:15] LABS: Basophils # (auto) 0.02 K/uL (0-0.2); Basophils % (auto) 0.3 %; Eosinophils # (auto) 0.09 K/uL (0-0.50); Eosinophils % (auto) 1.4 %; Hematocrit (blood only) 45.4 % (42.0-52.0); Hemoglobin 15.8 g/dl (14.0-18.0); Immature Granulocytes # (auto) 0.02 K/uL (0.01-0.20); Immature Granulocytes % (auto) 0.3 %; Lymphocytes # (auto) 0.96 K/uL (1.2-3.4); Lymphocytes % (auto) 15.3 %; Mean Corpuscular Hgb Conc 34.8 g/dL (32.0-36.0); Mean Corpuscular Volume 83.3 fL (80.0-100.0); Mean Platelet Volume 10.7 fL (9.4-12.4); Monocytes # (auto) 0.57 K/uL (0.11-0.59); Monocytes % (auto) 9.1 %; Neutrophils % (auto) 73.6 %; Platelet Count 178 K/uL (130-400); RDW Standard Deviation 38.8 fL (36.4-46.3); Red Blood Count 5.45 M/uL (4.70-6.10); White Blood Count 6.26 K/ul (4.8-10.8)
[2023-01-20] MEDS: ICU ELECTROLYTE REPLACEMENT PROTOCOL SCH ×2 (06:51→18:12)
[2023-01-20] MEDS: SODIUM CHLOR 7% 4 ML NEB NEB SCH ×2 (07:19→20:13)
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
[2023-01-20] MEDS: ACETYLCYSTEINE 20% INHAL SOLN 4ML ***DISPENSED BY RESP. INH SCH ×2 (08:02→20:13)
[2023-01-20] MEDS ORDERED: LEVALBUTEROL 1.25 MG/3 ML NEB ONE (08:04)
[2023-01-20] MEDS: DOXYCYCLINE HYCLATE 100 MG in DEXTROSE 5% 100 ML IV SCH ×2 (08:32→20:37)
[2023-01-20] MEDS: MULTI VIT W/MINERALS LIQUID 15 ML UDP PO SCH (08:32)
--- NOTE | 2023-01-20 08:48 | Critical Care Progress Note ---
Date of Service January 20, 2023 Assessment & Plan (1) Rhabdomyolysis: (2) Leukopenia: (3) Encephalopathy acute: (4) Bicuspid aortic valve: (5) Meningitis: (6) Snoring: Plan Reason Critically Ill: 52-year-old male with suspected viral encephalitis was admitted to the ICU for mental status changes. Had an LP done which showed pleocytosis but [email or web address] was negative for everything. Lyme is equivocal. Intubated for respiratory distress. PLAN: Neuro: -- Acute metabolic encephalopathy -Most consistent with viral encephalitis: Requesting West Nile, eastern equine encephalitis, and [place] testing -Monocytic pleocytosis rather elevated -Neurology following and requesting MRI, EEG -Patient will not remain still to obtain adequate imaging at this time -CTA of head and neck negative for any abnormality -Tox screen - 01/14/2023, alcohol level negative MRI brain 01/18/2023 negative for any acute abnormalities Patient has not had any alcohol for 5 years. DTs not a possibility Resp: -- VDRF Secondary to hypercapnic respiratory failure from altered mental status and history of MARCIO Continue with ventilatory support Keep RASS -1 --Right lower lobe collapse Secondary to mucous plugging, s/p bronch 01/17/2023 CV: --S/p Shock Likely septic Vasopressor support to keep MAP greater than 65 -- QTc prolonged QTC 573 on 01/17/2023 --> 469 on 01/18/2023 Bicuspid aortic valve -Following with primary care physician Fluids/Renal: -- FREEDOM Likely from hypotensive episode Monitor BUN/creatinine Avoid nephrotoxic medications Strict ins and outs -- Elevated CPK -Trending down History of nephrectomy -Reports secondary to infection ID: -- Encephalitis with lymphopenia, monocytic pleocytosis -Suspect Lyme versus viral origin, [email or web address] meningitis panel negative, Lyme IgM equivocal, PCR testing pending -Lyme IgM equivocal -Continue doxycycline and Rocephin, previously given acyclovir however HSV PCR negative -HIV and RPR negative -ID on board GI/Nutrition: Hypertriglyceridemia -Defer to outpatient Heme: Monitor H&H Endocrine: ICU hyperglycemia protocol --Prophylaxis VTE: Lovenox GI: Resolved Lines: Peripheral Diet: Tube feeds Plan: In/out: -2.8 L, urine output 4300 mL AB.42/45/83 on 04/19% Patient is more alert today. He was put on pressure support to make him exercise He is answering simple questions, moving bilateral lower extremities, today he is also moving his upper extremities. Initially the plan was to repeat LP today as there was no improvement in his mental status but today I do see improvement. I will hold back on repeating the LP Continue with tube feeds Chest x-ray from today still shows mild atelectasis of the right lower lobe. I will add Mucomyst to the hypertonic saline, continue with aggressive suctioning Case was discussed with patient's at bedside. I have personally spent 40 minutes of critical care time in the direct management of this patient. This is a life/limb threatening event. This includes time spent evaluating patient, direct bedside care, chart review, placing orders, interpretation of diagnostic studies, discussion with consultants, patient, and family members, as well as other required patient management activities. This time is exclusive of all separately billable procedures, and teaching time and separate from and in addition to any other critical care service time. Please note the above document was generated using voice recognition software. It may contain grammatical, syntax or spelling errors. Admission and Anticipated Discharge Date Admission Date: January 14, 2023 Subjective Patient seen and examined at bedside. No acute distress, no adverse events overnight He was on 25 of fentanyl and just just prior to examining it was put on hold He was awake. Tracking and following simple commands. Denied any headache, no chest pain. Still spiking low-grade fever Review of Systems Review of Systems: All systems reviewed & are unremarkable except as noted in Subjective Physical Exam Physical Exam: Constitutional: No acute distress HEENT: EOMI, PERRLA Respiratory system: Decreased air entry bilaterally, no wheeze, no rhonchi, mild crackles bilateral lower lobes CVS: S1-S2 positive, no murmurs or gallops Abdomen: Soft, nontender, nondistended, positive bowel sounds x4 Extremities: +2 pulses bilaterally radialis/ dorsalis pedis, no cyanosis, no edema Neuro: Breathing above the vent, spontaneously opening eyes, positive cough, positive gag, positive corneal, following simple commands Psych: Unable to assess G/U: Positive Aceves Skin: no rashes, warm and dry Lymphatic: no cervical or axillary lymphadenopathy Results & Data Results & Data Vital Signs (Past 12 Hours) Vital Signs Temp Pulse Pulse Resp BP Pulse Ox O2 Del Method 01/20/23 08:00 37.7 C H 121 H 25 H 155/106 H 96 CPAP, Mechanical Vent 01/20/23 08:00 01/20/23 07:28 117 H 24 94 01/20/23 07:00 37.6 C H 113 H 22 94 01/20/23 07:00 149/102 H 01/20/23 06:30 37.5 C 108 H 21 94 01/20/23 06:00 37.4 C 109 H 22 96 01/20/23 06:00 135/91 01/20/23 05:30 37.5 C 110 H 20 96 01/20/23 05:00 37.5 C 105 H 21 96 01/20/23 05:00 120/93 01/20/23 04:30 37.5 C 106 H 20 96 01/20/23 04:00 37.5 C 108 H 18 96 01/20/23 04:00 119/94 01/20/23 03:30 37.5 C 108 H 15 96 01/20/23 03:00 37.4 C 107 H 25 H 96 01/20/23 03:00 120/88 01/20/23 02:30 37.5 C 107 H 18 96 01/20/23 02:00 37.5 C 106 H 19 96 01/20/23 02:00 115/91 01/20/23 01:30 37.6 C H 110 H 17 96 01/20/23 01:00 37.6 C H 109 H 25 H 96 01/20/23 01:00 129/90 01/20/23 00:30 37.5 C 105 H 28 H 96 01/20/23 00:00 37.5 C 105 H 21 96 01/20/23 00:00 114/86 01/19/23 23:30 37.6 C H 107 H 14 96 01/19/23 23:00 37.7 C H 109 H 14 95 01/19/23 22:30 37.7 C H 109 H 18 95 01/19/23 22:29 37.7 C H 110 H 21 96 01/19/23 22:29 126/93 01/19/23 22:00 37.9 C H 110 H 21 95 01/19/23 21:30 37.8 C H 115 H 16 95 01/19/23 21:00 37.8 C H 114 H 17 96 01/19/23 22:00 Mechanical Vent 01/20/23 07:20 115 H 21 93 Mechanical Vent 01/19/23 23:58 107 H 01/20/23 04:05 110 H 18 97 01/19/23 22:21 113 H 18 95 FiO2 01/20/23 08:00 30 01/20/23 08:00 30 01/20/23 07:28 30 01/20/23 07:00 01/20/23 07:00 01/20/23 06:30 01/20/23 06:00 01/20/23 06:00 01/20/23 05:30 01/20/23 05:00 01/20/23 05:00 01/20/23 04:30 01/20/23 04:00 01/20/23 04:00 01/20/23 03:30 01/20/23 03:00 01/20/23 03:00 01/20/23 02:30 01/20/23 02:00 01/20/23 02:00 01/20/23 01:30 01/20/23 01:00 01/20/23 01:00 01/20/23 00:30 01/20/23 00:00 01/20/23 00:00 01/19/23 23:30 01/19/23 23:00 01/19/23 22:30 01/19/23 22:29 01/19/23 22:29 01/19/23 22:00 01/19/23 21:30 01/19/23 21:00 01/19/23 22:00 01/20/23 07:20 30 01/19/23 23:58 01/20/23 04:05 30 01/19/23 22:21 30 Laboratory Results 01/20/23 04:53 01/20/23 04:53 Coding Level of Care Code 83193 CRITICAL CARE 1ST 30-74M Diagnoses Rhabdomyolysis M62.82 Leukopenia D72.810 Leukopenia type: lymphocytopenia Encephalopathy acute G93.40 Bicuspid aortic valve Q23.1 Meningitis G03.9 Snoring R06.83 Time Spent (min) 40 (2) Leukopenia Leukopenia type: lymphocytopenia Qualified Code(s): D72.810 - Lymphocytopenia
[2023-01-20] MEDS: cefTRIAXone SODIUM 2,000 MG in DEXTROSE 5% 50 ML IV SCH ×2 (09:27→20:37)
[2023-01-20] MEDS: ENOXAPARIN INJ 40 MG/0.4 ML SYR SQ SCH (09:38)
[2023-01-20] MEDS: PANTOprazole 40 MG in SYRINGE 0 ML IV SCH (10:37)
--- NOTE | 2023-01-20 11:04 | XRay Report ---
XR chest 1V portable CLINICAL HISTORY: while intubated- eval tubes/lines and lung narayan TECHNIQUE: Single frontal radiograph of the chest was obtained. Comparison: Comparison is made to chest radiograph 01/19/2023 FINDINGS: Lines and tubes are stable. The cardiomediastinal silhouette is normal. Lungs are underinflated but c lear. Linear atelectasis is seen in the left lower lobe. No evidence of pleural effusion or pneumotho rax. IMPRESSION: Atelectasis in the left lower lobe. Otherwise unremarkable. ACT 112: Negative or not required by law. Electronically signed by: Dillan Jordan M.D. 01/20/2023 11:03 AM
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
--- NOTE | 2023-01-20 12:22 | Communication Note ---
Date of Service: January 20, 2023 Neurology Update: We continue to follow peripherally, encouraged by the patient's clinical process though no causative agent is identified. As to the question posed iin the ID consult from today 01/20 - there is no indication for steroids. Please continue to contact us with any further questions.
[2023-01-20] MEDS ORDERED: ACETAMINOPHEN 1000 MG/100 ML IV IV ONE (12:40)
[2023-01-20] MEDS: ACETAMINOPHEN 1,000 MG/100 ML VIAL IV PRN (12:42)
[2023-01-20 17:07] LABS: Ehrlichia chaff DNA Bld Negative (Negative)
[2023-01-20 18:09] LABS: Magnesium 2.3 mg/dl (1.7-2.4); Phosphorus 3.6 mg/dl (2.5-4.9); Potassium 4.5 mmol/L (3.5-5.1)
[2023-01-20] MEDS: PEPTAMEN INTENSE VHP 1.0 CAL 1,000 ML BAG OG SCH (18:22)
[2023-01-20] MEDS ORDERED: MIDAZOLAM HCL 1 MG/ML 2ML VIAL IV STA (20:27)
[2023-01-20] MEDS ORDERED: MIDAZOLAM HCL 1 MG/ML 2ML VIAL ONE (20:28)
--- NOTE | 2023-01-20 20:41 | Critical Care Progress Note ---
Date of Service January 20, 2023 Assessment & Plan Admission and Anticipated Discharge Date Admission Date: January 14, 2023 Results & Data Results & Data Vital Signs (Past 12 Hours) Vital Signs Temp Pulse Resp BP Pulse Ox O2 Del Method FiO2 01/20/23 18:00 37.7 C H 111 H 24 136/96 94 Mechanical Vent 25 01/20/23 17:00 37.6 C H 113 H 23 133/90 95 Mechanical Vent 01/20/23 16:00 37.5 C 110 H 22 135/101 H 95 Mechanical Vent 01/20/23 17:00 25 01/20/23 14:30 103 H 01/20/23 15:00 37.5 C 106 H 22 125/95 95 Mechanical Vent 01/20/23 13:30 111 H 16 94 25 01/20/23 14:00 37.6 C H 103 H 21 130/81 95 Mechanical Vent 01/20/23 13:00 37.8 C H 118 H 28 H 134/99 94 CPAP, Mechanical Vent 01/20/23 13:42 25 01/20/23 12:00 37.8 C H 122 H 25 H 147/107 H 95 CPAP, Mechanical Vent 30 01/20/23 11:00 37.7 C H 116 H 27 H 137/103 H 95 CPAP, Mechanical Vent 30 01/20/23 11:06 116 H 27 H 97 25 01/20/23 10:00 37.7 C H 118 H 27 H 125/99 96 CPAP, Mechanical Vent 30 01/20/23 09:00 37.7 C H 121 H 24 137/102 H 96 CPAP, Mechanical Vent 30 Coding Diagnoses
[2023-01-20] MEDS ORDERED: PROPOFOL BOLUS FROM BAG IV PRN (21:47)
[2023-01-20] MEDS ORDERED: STAT IV Infusion **Titration per Protocol STA (21:47)
[2023-01-20] MEDS: propofoL 1,000 MG/100 ML VIAL IV SCH (21:57)
[2023-01-21] MEDS: propofoL 1,000 MG/100 ML VIAL IV SCH ×5 (03:48→20:39)
[2023-01-21] MEDS: TUBE FEEDING WATER FLUSH OG SCH ×6 (03:48→20:48)
[2023-01-21] MEDS: ACETAMINOPHEN 1,000 MG/100 ML VIAL IV PRN ×2 (05:18→14:56)
[2023-01-21 05:43] LABS: BUN Creatinine Ratio 32.5 (10-20); Calcium 9.4 mg/dl (8.6-10.3); Creatinine Clr Calc Pharmacy 120.2 ml/min; Est GFR (African American) 118.1 ml/min; Est GFR (Non-African American) 101.9 ml/min; Magnesium 2.2 mg/dl (1.7-2.4); Phosphorus 3.8 mg/dl (2.5-4.9); Potassium 4.4 mmol/L (3.5-5.1)
[2023-01-21 05:46] LABS: Basophils # (auto) 0.03 K/uL (0-0.2); Basophils % (auto) 0.4 %; Eosinophils # (auto) 0.23 K/uL (0-0.50); Hematocrit (blood only) 46.5 % (42.0-52.0); Immature Granulocytes # (auto) 0.05 K/uL (0.01-0.20); Immature Granulocytes % (auto) 0.7 %; Lymphocytes # (auto) 1.06 K/uL (1.2-3.4); Lymphocytes % (auto) 13.8 %; Mean Corpuscular Hemoglobin 29.2 pg (25.0-34.0); Mean Corpuscular Hgb Conc 34.4 g/dL (32.0-36.0); Mean Corpuscular Volume 84.9 fL (80.0-100.0); Mean Platelet Volume 10.6 fL (9.4-12.4); Monocytes # (auto) 0.67 K/uL (0.11-0.59); Monocytes % (auto) 8.7 %; Neutrophils # (auto) 5.62 K/uL (1.40-6.50); Neutrophils % (auto) 73.4 %; Platelet Count 195 K/uL (130-400); RDW Coefficient of Variation 12.7 % (11.5-14.5); RDW Standard Deviation 39.1 fL (36.4-46.3); Red Blood Count 5.48 M/uL (4.70-6.10); White Blood Count 7.66 K/ul (4.8-10.8)
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
[2023-01-21] MEDS: ICU ELECTROLYTE REPLACEMENT PROTOCOL SCH ×2 (06:52→19:24)
[2023-01-21] MEDS: ACETYLCYSTEINE 20% INHAL SOLN 4ML ***DISPENSED BY RESP. INH SCH ×2 (07:13→19:13)
[2023-01-21] MEDS: SODIUM CHLOR 7% 4 ML NEB NEB SCH ×2 (07:13→19:12)
[2023-01-21] MEDS ORDERED: LEVALBUTEROL 1.25 MG/3 ML NEB ONE ×2 (07:20→19:11)
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
[2023-01-21] MEDS: DOXYCYCLINE HYCLATE 100 MG in DEXTROSE 5% 100 ML IV SCH ×2 (08:39→20:26)
[2023-01-21] MEDS: ENOXAPARIN INJ 40 MG/0.4 ML SYR SQ SCH (08:40)
[2023-01-21] MEDS: MULTI VIT W/MINERALS LIQUID 15 ML UDP PO SCH (08:40)
[2023-01-21] MEDS ORDERED: LEVALBUTEROL 1.25MG/0.5ML NEB NEB SCH (09:00)
--- NOTE | 2023-01-21 09:17 | XRay Report ---
XR chest 1V portable HISTORY: 52 years-old Male f/u acute shortness of breath COMPARISON: 01/20/2023 TECHNIQUE: AP view of the chest FINDINGS: Endotracheal tube overlies the midline, 2.3 cm superior to the nelsy. Enteric tube in stomach with d istal tip outside the [id number]. No pneumothorax. Mild subsegmental bibasilar densities with trac e pleural effusions. Bones appear grossly intact. IMPRESSION: 1. Satisfactory positioning of the endotracheal and enteric tubes. 2. Cardiomegaly without overt pulmonary edema. 3. Trace pleural effusions with persistent mild bibasilar atelectasis. ACT 112: Negative or not required by law. The above report was generated using voice recognition software. It may contain grammatical, syntax o r spelling errors. Electronically signed by: Tucker Bustos M.D. 01/21/2023 9:16 AM
[2023-01-21] MEDS: cefTRIAXone SODIUM 2,000 MG in DEXTROSE 5% 50 ML IV SCH ×2 (09:21→20:47)
[2023-01-21] MEDS: PANTOprazole 40 MG in SYRINGE 0 ML IV SCH (11:05)
[2023-01-21] MEDS: LACTULOSE SYRUP 30 GM/45 ML UDP PO SCH (11:42)
[2023-01-21] MEDS: DOCUSATE SODIUM/SENNA 50/8.6MG TAB PO SCH ×2 (11:42→20:33)
[2023-01-21] MEDS: PEPTAMEN INTENSE VHP 1.0 CAL 1,000 ML BAG OG SCH (15:37)
[2023-01-21 19:11] LABS: Magnesium 2.3 mg/dl (1.7-2.4); Potassium 4.4 mmol/L (3.5-5.1)
[2023-01-21] MEDS: LEVALBUTEROL 1.25MG/0.5ML NEB NEB SCH (19:13)
[2023-01-22] MEDS: propofoL 1,000 MG/100 ML VIAL IV SCH ×8 (01:03→21:24)
[2023-01-22] MEDS: ACETAMINOPHEN 1,000 MG/100 ML VIAL IV PRN ×2 (01:04→16:19)
[2023-01-22] MEDS: TUBE FEEDING WATER FLUSH OG SCH ×6 (02:47→22:30)
[2023-01-22 04:58] LABS: iSTAT Allen Test Pass; iSTAT Art Bld Gas pCO2 Correct 42 mmHg (35-46); iSTAT Art Bld Gas pH Corrected 7.396 (7.35-7.45); iSTAT Arterial Blood Gas HCO3 26 meg/L (19-24); iSTAT Arterial Blood Gas pCO2 41 mmHg (35-46); iSTAT Arterial Blood Gas pH 7.41 (7.35-7.45); iSTAT Arterial Blood Gas pO2 78 mmHg (80-95); iSTAT Arterial Blood Gas pO2 C 82; iSTAT Carbon Dioxide 27 mmol/L (24-31); iSTAT FiO2 25 %; iSTAT Hematocrit 43 % (42-52); iSTAT Hemoglobin 14.6 g/dl (14.0-18.0); iSTAT Potassium 4.4 mmol/L (3.3-5.0); iSTAT Site R Radial; iSTAT Sodium 137 mmol/L (135-144)
[2023-01-22 05:45] LABS: Basophils # (auto) 0.08 K/uL (0-0.2); Basophils % (auto) 0.7 %; Eosinophils # (auto) 0.38 K/uL (0-0.50); Eosinophils % (auto) 3.3 %; Hematocrit (blood only) 47.6 % (42.0-52.0); Hemoglobin 16.5 g/dl (14.0-18.0); Immature Granulocytes # (auto) 0.23 K/uL (0.01-0.20); Lymphocytes # (auto) 1.96 K/uL (1.2-3.4); Lymphocytes % (auto) 17.2 %; Mean Corpuscular Hgb Conc 34.7 g/dL (32.0-36.0); Mean Corpuscular Volume 83.8 fL (80.0-100.0); Mean Platelet Volume 10.8 fL (9.4-12.4); Monocytes # (auto) 0.78 K/uL (0.11-0.59); Monocytes % (auto) 6.8 %; Neutrophils # (auto) 7.97 K/uL (1.40-6.50); Platelet Count 211 K/uL (130-400); RDW Coefficient of Variation 12.9 % (11.5-14.5); RDW Standard Deviation 39.1 fL (36.4-46.3); Red Blood Count 5.68 M/uL (4.70-6.10)
[2023-01-22 06:05] LABS: BUN Creatinine Ratio 37.3 (10-20); Creatinine Clr Calc Pharmacy 133.8 ml/min; Est GFR (African American) 123.1 ml/min; Est GFR (Non-African American) 106.2 ml/min; Magnesium 2.3 mg/dl (1.7-2.4); Phosphorus 3.7 mg/dl (2.5-4.9); Potassium 4.3 mmol/L (3.5-5.1)
[2023-01-22] MEDS: ICU ELECTROLYTE REPLACEMENT PROTOCOL SCH ×2 (06:30→16:07)
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
[2023-01-22] MEDS ORDERED: STAT IV Infusion **Titration per Protocol STA (07:23)
[2023-01-22] MEDS: dexMEDEtomidine 200 MCG/50 ML BAG IV SCH ×6 (07:28→22:50)
[2023-01-22] MEDS: MULTI VIT W/MINERALS LIQUID 15 ML UDP PO SCH (07:28)
[2023-01-22] MEDS: DOXYCYCLINE HYCLATE 100 MG in DEXTROSE 5% 100 ML IV SCH ×2 (07:28→21:22)
[2023-01-22] MEDS: LACTULOSE SYRUP 30 GM/45 ML UDP PO SCH (07:28)
[2023-01-22] MEDS: DOCUSATE SODIUM/SENNA 50/8.6MG TAB PO SCH ×2 (07:28→21:21)
[2023-01-22] MEDS: ENOXAPARIN INJ 40 MG/0.4 ML SYR SQ SCH (07:28)
[2023-01-22] MEDS: SODIUM CHLOR 7% 4 ML NEB NEB SCH ×2 (07:43→19:14)
[2023-01-22] MEDS: ACETYLCYSTEINE 20% INHAL SOLN 4ML ***DISPENSED BY RESP. INH SCH ×2 (07:48→19:15)
[2023-01-22] MEDS ORDERED: LEVALBUTEROL 1.25 MG/3 ML NEB ONE ×2 (07:50→19:13)
[2023-01-22] MEDS: LEVALBUTEROL 1.25MG/0.5ML NEB NEB SCH ×2 (08:10→19:15)
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
--- NOTE | 2023-01-22 08:16 | XRay Report ---
XR chest 1V portable HISTORY: 52 years-old Male Resp failure acute respiratory failure COMPARISON: 01/21/2023 TECHNIQUE: AP view of the chest FINDINGS: Endotracheal tube overlies the midline, 2.8 cm superior to the nelsy. Enteric tube in stomach with d istal tip outside the [id number]. No pneumothorax. Mild subsegmental bibasilar densities with trac e pleural effusions. Mild right hemidiaphragmatic elevation. Bones appear grossly intact. IMPRESSION: 1. Satisfactory positioning of the endotracheal and enteric tubes. 2. Cardiomegaly without overt pulmonary edema. 3. Trace pleural effusions with persistent mild bibasilar opacities suggestive of atelectasis. ACT 112: Negative or not required by law. The above report was generated using voice recognition software. It may contain grammatical, syntax o r spelling errors. Electronically signed by: Tucker Bustos M.D. 01/22/2023 8:14 AM
[2023-01-22] MEDS: PEPTAMEN INTENSE VHP 1.0 CAL 1,000 ML BAG OG SCH (09:35)
[2023-01-22] MEDS: cefTRIAXone SODIUM 2,000 MG in DEXTROSE 5% 50 ML IV SCH ×2 (09:35→21:21)
[2023-01-22] MEDS: PANTOprazole 40 MG in SYRINGE 0 ML IV SCH (09:36)
[2023-01-22 22:33] LABS: Mycoplasma pneumoniae Ab, IgG <=0.90 (<=0.90); Mycoplasma pneumoniae Ab, IgM 96 U/mL (<770); Q Fever IgG, Phase I NEGATIVE; Q Fever Phase I IgM Antibody NEGATIVE; Q Fever Phase II IgG Antibody NEGATIVE; Q Fever Phase II IgM Antibody NEGATIVE; R. typhi IgG Ab NOT DETECTED; R. typhi IgM Ab NOT DETECTED; RMSF IgG Ab NOT DETECTED; RMSF IgM Ab NOT DETECTED
[2023-01-23] MEDS: TUBE FEEDING WATER FLUSH OG SCH ×5 (02:30→17:08)
[2023-01-23] MEDS: dexMEDEtomidine 200 MCG/50 ML BAG IV SCH ×15 (02:48→21:45)
[2023-01-23] MEDS: PEPTAMEN INTENSE VHP 1.0 CAL 1,000 ML BAG OG SCH (02:48)
[2023-01-23] MEDS: propofoL 1,000 MG/100 ML VIAL IV SCH ×4 (02:49→12:46)
[2023-01-23 04:46] LABS: iSTAT Allen Test Pass; iSTAT Art Bld Gas pCO2 Correct 45 mmHg (35-46); iSTAT Art Bld Gas pH Corrected 7.399 (7.35-7.45); iSTAT Arterial Blood Gas HCO3 28 meg/L (19-24); iSTAT Arterial Blood Gas pCO2 44 mmHg (35-46); iSTAT Arterial Blood Gas pH 7.41 (7.35-7.45); iSTAT Arterial Blood Gas pO2 69 mmHg (80-95); iSTAT Arterial Blood Gas pO2 C 72; iSTAT Carbon Dioxide 29 mmol/L (24-31); iSTAT FiO2 25 %; iSTAT Hematocrit 43 % (42-52); iSTAT Hemoglobin 14.6 g/dl (14.0-18.0); iSTAT Potassium 4.5 mmol/L (3.3-5.0); iSTAT Site R Radial; iSTAT Sodium 138 mmol/L (135-144)
[2023-01-23 05:54] LABS: BUN Creatinine Ratio 35.1 (10-20); Basophils # (auto) 0.06 K/uL (0-0.2); Basophils % (auto) 0.5 %; Calcium 9.3 mg/dl (8.6-10.3); Creatinine Clr Calc Pharmacy 129.8 ml/min; Eosinophils % (auto) 2.4 %; Est GFR (African American) 121.8 ml/min; Est GFR (Non-African American) 105.1 ml/min; Hematocrit (blood only) 47.2 % (42.0-52.0); Hemoglobin 15.9 g/dl (14.0-18.0); Immature Granulocytes # (auto) 0.08 K/uL (0.01-0.20); Immature Granulocytes % (auto) 0.6 %; Lymphocytes # (auto) 1.51 K/uL (1.2-3.4); Lymphocytes % (auto) 11.9 %; Magnesium 2.4 mg/dl (1.7-2.4); Mean Corpuscular Hemoglobin 29.2 pg (25.0-34.0); Mean Corpuscular Hgb Conc 33.7 g/dL (32.0-36.0); Mean Corpuscular Volume 86.6 fL (80.0-100.0); Mean Platelet Volume 10.2 fL (9.4-12.4); Monocytes # (auto) 1.02 K/uL (0.11-0.59); Neutrophils # (auto) 9.77 K/uL (1.40-6.50); Neutrophils % (auto) 76.6 %; Phosphorus 3.4 mg/dl (2.5-4.9); Platelet Count 236 K/uL (130-400); Potassium 4.4 mmol/L (3.5-5.1); RDW Coefficient of Variation 12.9 % (11.5-14.5); Red Blood Count 5.45 M/uL (4.70-6.10); White Blood Count 12.74 K/ul (4.8-10.8)
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
[2023-01-23] MEDS ORDERED: LEVALBUTEROL 1.25 MG/3 ML NEB ONE ×2 (06:51→19:37)
[2023-01-23] MEDS: ACETYLCYSTEINE 20% INHAL SOLN 4ML ***DISPENSED BY RESP. INH SCH (07:12)
[2023-01-23] MEDS: SODIUM CHLOR 7% 4 ML NEB NEB SCH (07:12)
[2023-01-23] MEDS: LEVALBUTEROL 1.25MG/0.5ML NEB NEB SCH ×2 (07:12→20:01)
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
[2023-01-23] MEDS: ICU ELECTROLYTE REPLACEMENT PROTOCOL SCH ×2 (07:41→17:03)
[2023-01-23] MEDS: LACTULOSE SYRUP 30 GM/45 ML UDP PO SCH (07:43)
[2023-01-23] MEDS: DOCUSATE SODIUM/SENNA 50/8.6MG TAB PO SCH ×2 (07:43→21:09)
[2023-01-23] MEDS: MULTI VIT W/MINERALS LIQUID 15 ML UDP PO SCH (07:43)
[2023-01-23] MEDS: ENOXAPARIN INJ 40 MG/0.4 ML SYR SQ SCH (07:43)
[2023-01-23] MEDS: DOXYCYCLINE HYCLATE 100 MG in DEXTROSE 5% 100 ML IV SCH ×2 (07:44→21:09)
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
[2023-01-23] MEDS ORDERED: fentaNYL citrate PF 100 MCG/2 ML VIAL IV PRN (08:48)
[2023-01-23] MEDS: cefTRIAXone SODIUM 2,000 MG in DEXTROSE 5% 50 ML IV SCH ×2 (08:52→21:08)
[2023-01-23] MEDS ORDERED: Nursing to Pharmacy Communication SCH ×3 (09:00→15:00)
[2023-01-23] MEDS: PANTOprazole 40 MG in SYRINGE 0 ML IV SCH (10:22)
[2023-01-23] MEDS: ACETAMINOPHEN 1,000 MG/100 ML VIAL IV PRN (12:16)
--- NOTE | 2023-01-23 13:45 | Critical Care Progress Note ---
Date of Service January 23, 2023 Assessment & Plan (1) Encephalopathy acute: (2) Bicuspid aortic valve: (3) Viral encephalitis: Plan Remains dependent on the ventilator due to increased respiratory demands and acute encephalopathy. Etiology of increased respiratory demands is somewhat unclear. Repeat MRI brain today to look for central causes. Also obtain MRI C- spine and T-spine. Consider neurology consultation. Prior EEG earlier this admission without evidence of epileptiform discharges. Patient is currently being treated for possible Lyme disease based on infectious disease recommendations. Appreciate their input. Continue broad-spectrum antibiotics per ID. HIV negative. Low threshold for repeat CT chest imaging if fevers persist. Repeat ESR and CRP. Bronchoscopy from 01/17/2023 without evidence of positive cultures. Repeat procalcitonin. Continue SIMV and daily SBT. Obtain echocardiogram given bicuspid aortic valve, leukocytosis and fevers. Also evaluate for cardiomyopathy in the context of severe tachypnea. Continue Protonix for PPI prophylaxis. Continue tube feeds. Continue to minimize sedation. We will use Precedex for agitation. CRITICAL CARE TIME - I have personally spent 38 minutes of critical care time in the direct management of this patient. This is a life/limb threatening event. This includes time spent evaluating patient, direct bedside care, chart review, placing orders, interpretation of diagnostic studies, discussion with consultants, patient, and family members, as well as other required patient management activities. This time is exclusive of all separately billable procedures, and teaching time and separate from and in addition to any other critical care service time. Admission and Anticipated Discharge Date Admission Date: January 14, 2023 Subjective Patient seen and examined. at bedside. Patient not responsive to commands. Currently on low-dose propofol and Precedex. Remains tachypneic. Review of Systems Review of Systems: Unobtainable due to endotracheal tube and Unobtainable due to reduced consciousness Physical Exam Physical Exam: Constitutional: No acute distress HEENT: EOMI, PERRLA Respiratory system: Decreased air entry bilaterally, no wheeze, no rhonchi, mild crackles bilateral lower lobes CVS: S1-S2 positive, no murmurs or gallops Abdomen: Soft, nontender, nondistended, positive bowel sounds x4 Extremities: +2 pulses bilaterally radialis/ dorsalis pedis, no cyanosis, no edema Neuro: RASS -2, breathing over the vent, positive cough, positive gag, positive corneal Psych: Unable to assess G/U: Positive Aceves Skin: no rashes, warm and dry Lymphatic: no cervical or axillary lymphadenopathy Results & Data Results & Data Vital Signs (Past 12 Hours) Vital Signs Temp Pulse Pulse Resp BP Pulse Ox O2 Del Method 01/23/23 11:37 100 H 19 92 01/23/23 11:34 94 H 01/23/23 11:34 01/23/23 10:25 Mechanical Vent 01/23/23 10:00 37.8 C H 94 H 36 H 93 01/23/23 10:00 91/73 L 01/23/23 09:45 101/73 01/23/23 09:45 37.7 C H 98 H 35 H 92 01/23/23 09:30 100/80 01/23/23 09:30 37.8 C H 105 H 32 H 92 01/23/23 09:15 37.8 C H 111 H 32 H 92 01/23/23 09:15 113/82 01/23/23 09:00 37.7 C H 117 H 39 H 91 01/23/23 08:00 37.7 C H 122 H 27 H 93 01/23/23 08:00 125/108 H 01/23/23 07:00 37.7 C H 111 H 36 H 92 01/23/23 07:00 134/96 01/23/23 06:45 37.7 C H 110 H 33 H 93 01/23/23 08:00 01/23/23 08:00 110 H 01/23/23 07:13 110 H 24 92 Mechanical Vent 01/23/23 07:13 110 H 24 92 01/23/23 04:00 01/23/23 02:00 114 H 23 93 FiO2 01/23/23 11:37 25 01/23/23 11:34 01/23/23 11:34 25 01/23/23 10:25 01/23/23 10:00 01/23/23 10:00 01/23/23 09:45 01/23/23 09:45 01/23/23 09:30 01/23/23 09:30 01/23/23 09:15 01/23/23 09:15 01/23/23 09:00 01/23/23 08:00 01/23/23 08:00 01/23/23 07:00 01/23/23 07:00 01/23/23 06:45 01/23/23 08:00 25 01/23/23 08:00 01/23/23 07:13 25 01/23/23 07:13 25 01/23/23 04:00 25 01/23/23 02:00 25 Coding Level of Care Code 16801 CRITICAL CARE 1ST 30-74M Diagnoses Encephalopathy acute G93.40 Bicuspid aortic valve Q23.1 Viral encephalitis A86 Time Spent (min) 38
[2023-01-23] MEDS ORDERED: propofoL 1,000 MG/100 ML VIAL IV SCH (14:00)
[2023-01-23] MEDS ORDERED: GADOBUTROL 65ML VIAL IV ONE (14:03)
--- NOTE | 2023-01-23 15:10 | Magnetic Resonance Report ---
MR thoracic spine wo/w con CLINICAL HISTORY: profound weakness TECHNIQUE: Multiplanar sequences through the thoracic spine were obtained, without and with intraveno us contrast. Comparison: None available at the time of this dictation. FINDINGS: The alignment is anatomical. Disks are normal in height and signal. The spinal canal and neural foramina are patent. The spinal ligaments are intact, without evidence of disruption or abnormal signal intensity. The spi nal cord is normal in signal intensity and there is no evidence of cord contusion. There is no eviden ce of an extradural, intradural, extramedullary or intramedullary lesion. Atelectasis is partially vi sualized. A tracheostomy tube is seen. IMPRESSION: No evidence of cord compression, significant neuroforaminal narrowing or ligamentous injury. No evide nce of T2 hyperintensity to suggest demyelination. No abnormal enhancement to suggest active demyelin ation. ACT 112: Negative or not required by law. Electronically signed by: Dillan Jordan M.D. 01/23/2023 3:08 PM
--- NOTE | 2023-01-23 15:11 | Magnetic Resonance Report ---
MR cervical spine wo/w con HISTORY: 52 years-old Male profound UE weakness, ?MS, ?injury chronic upper extremity weakness. COMPARISON: Brain MRI same day, CTA neck 01/15/2023. TECHNIQUE: Multiplanar, multisequence MRI of the cervical spine was obtained both with and without th e use of IV contrast. FINDINGS: Endotracheal and enteric tubes are again noted. Layering secretions within the airway. The imaged pos terior fossa structures are unremarkable. No acute fracture, subluxation, endplate erosion or signifi cant soft tissue edema. Trace facet effusions are noted, right greater than left. Normal signal withi n the cervical and imaged upper thoracic spinal cord. Minimal marrow edema at T2 is likely on a degen erative basis. Mild multilevel facet arthrosis. C2-C3: Uncovertebral hypertrophy with mild facet arthrosis. No central canal or neural foraminal narr owing. C3-C4: Uncovertebral hypertrophy with mild facet arthrosis. No central canal or neural foraminal narr owing. C4-C5: Uncovertebral hypertrophy and mild facet arthrosis. There is mild left neural foraminal narrow ing. The central canal and right neural foramen are patent. C5-C6: Mild intervertebral disc space narrowing with uncovertebral hypertrophy. Left paracentral/suba rticular disc protrusion measures 9 mm transversely. Flattening of the ventral thecal sac with mild c entral canal stenosis, AP dimension measuring 9 mm. Moderate left with mild right neural foraminal na rrowing. C6-C7: No central canal or neural foraminal narrowing. C7-T1: No central canal or neural foraminal narrowing. IMPRESSION: 1. No acute fracture or subluxation. 2. C5-C6 disc protrusion contributes to cause mild central canal stenosis with moderate left neural f oraminal narrowing. 3. Normal signal within the cervical spinal cord. 4. No abnormal enhancement. ACT 112: Negative or not required by law. The above report was generated using voice recognition software. It may contain grammatical, syntax o r spelling errors. Dictated: 01/23/2023 2:46 PM Transcribed: 01/23/2023 3:09 PM Sharmila [id number] Electronically signed by: Tucker Bustos M.D. 01/23/2023 3:09 PM
[2023-01-23] MEDS ORDERED: ACETAMINOPHEN SUSP 325 MG/10.15 ML UDC PO PRN (15:22)
[2023-01-23] MEDS ORDERED: clonazePAM 0.5 MG TAB PO STA (15:24)
--- NOTE | 2023-01-23 16:27 | Magnetic Resonance Report ---
MRI OF THE BRAIN COMBO CLINICAL HISTORY: Generalized weakness. COMPARISON STUDY: MRI of the brain dated 01/17/2023. TECHNIQUE: MRI of the brain was performed utilizing various T1 and T2-weighted sequences in the axial , sagittal, and coronal planes. Contrast-enhanced sequences were acquired following the administratio n of 10.5 cc of Gadavist. The examination is performed using multiple sclerosis protocol. FINDINGS: Brain parenchyma: There is minimal microangiopathic change. The brain parenchyma is otherwise normal in appearance. There is no hemorrhage or mass effect. There is no restricted diffusion to suggest acu te ischemia. No enhancing mass lesion is identified on the postcontrast images. Pro-white matter dif ferentiation is preserved. No extra-axial fluid collection is seen. The cerebellar tonsils are normal in configuration. Ventricles, sulci, and cisterns: Normal in configuration. Pituitary and sella: Unremarkable. Intracranial vasculature: Normal flow voids are maintained at the skull base. Orbits: The bony orbits are grossly intact. Orbital contents are normal in appearance. Sinuses and mastoids: There are bilateral mastoid effusions. Trace mucosal thickening is noted within the ethmoid sinuses. Calvarium: Unremarkable. Cervical cord: Partially visualized cervical spinal cord is normal in morphology and signal intensity . IMPRESSION: No acute intracranial abnormality. No significant change from 01/17/2023. ACT 112: Negative or not required by law. Electronically signed by: Dom Pelayo M.D. 01/23/2023 4:26 PM
[2023-01-23] MEDS ORDERED: HYDROmorphone INJ 1 MG/ML SYRINGE IV PRN (16:31)
[2023-01-23] MEDS ORDERED: methylPREDNISolone 60 MG in SYRINGE 0 ML IV ONE (16:42)
[2023-01-23] MEDS: PLASMA-LYTE A 1,000 ML IV SCH (17:07)
[2023-01-23 17:11] LABS: Albumin Level 3.6 gm/dl (3.4-5.0); Bilirubin,Total 0.5 mg/dl (0.2-1.0)
--- NOTE | 2023-01-23 17:14 | Billing Data ---
Date of Service January 23, 2023 Coding Level of Care Code 01264 SUB INP/OBS CARE
[2023-01-23] MEDS ORDERED: PLASMA-LYTE A 500 ML IV ONE (17:50)
--- NOTE | 2023-01-23 20:47 | XCELERA ---
[id number] [id number]
[2023-01-24] MEDS: dexMEDEtomidine 200 MCG/50 ML BAG IV SCH ×9 (00:06→14:58)
[2023-01-24] MEDS: TUBE FEEDING WATER FLUSH OG SCH ×3 (00:12→07:50)
[2023-01-24] MEDS: PLASMA-LYTE A 1,000 ML IV SCH (05:04)
[2023-01-24 05:09] LABS: Basophils # (auto) 0.02 K/uL (0-0.2); Basophils % (auto) 0.2 %; Eosinophils # (auto) 0.01 K/uL (0-0.50); Eosinophils % (auto) 0.1 %; Hematocrit (blood only) 39.2 % (42.0-52.0); Hemoglobin 13.7 g/dl (14.0-18.0); Immature Granulocytes % (auto) 0.8 %; Lymphocytes # (auto) 0.83 K/uL (1.2-3.4); Lymphocytes % (auto) 6.8 %; Mean Corpuscular Hemoglobin 28.9 pg (25.0-34.0); Mean Corpuscular Hgb Conc 34.9 g/dL (32.0-36.0); Mean Corpuscular Volume 82.7 fL (80.0-100.0); Mean Platelet Volume 10.1 fL (9.4-12.4); Monocytes # (auto) 0.59 K/uL (0.11-0.59); Monocytes % (auto) 4.9 %; Neutrophils # (auto) 10.61 K/uL (1.40-6.50); Neutrophils % (auto) 87.2 %; Platelet Count 221 K/uL (130-400); RDW Coefficient of Variation 12.5 % (11.5-14.5); RDW Standard Deviation 37.8 fL (36.4-46.3); Red Blood Count 4.74 M/uL (4.70-6.10); White Blood Count 12.16 K/ul (4.8-10.8)
[2023-01-24 05:24] LABS: BUN Creatinine Ratio 46.2 (10-20); Creatinine Clr Calc Pharmacy 153.8 ml/min; Est GFR (African American) 130.6 ml/min; Est GFR (Non-African American) 112.6 ml/min; Magnesium 2.3 mg/dl (1.7-2.4); Phosphorus 2.7 mg/dl (2.5-4.9); Potassium 4.4 mmol/L (3.5-5.1)
[2023-01-24 05:29] LABS: iSTAT Allen Test Pass; iSTAT Arterial Blood Gas HCO3 27 meg/L (19-24); iSTAT Arterial Blood Gas pCO2 44 mmHg (35-46); iSTAT Arterial Blood Gas pO2 63 mmHg (80-95); iSTAT Carbon Dioxide 29 mmol/L (24-31); iSTAT FiO2 30 %; iSTAT Site R Radial
[2023-01-24] MEDS: ICU ELECTROLYTE REPLACEMENT PROTOCOL SCH ×2 (06:12→18:44)
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
[2023-01-24] MEDS: ENOXAPARIN INJ 40 MG/0.4 ML SYR SQ SCH (07:50)
[2023-01-24] MEDS: DOCUSATE SODIUM/SENNA 50/8.6MG TAB PO SCH ×2 (07:51→19:47)
[2023-01-24] MEDS: DOXYCYCLINE HYCLATE 100 MG in DEXTROSE 5% 100 ML IV SCH ×2 (07:52→19:48)
--- NOTE | 2023-01-24 08:02 | XRay Report ---
SINGLE VIEW CHEST CLINICAL HISTORY: Respiratory failure. FINDINGS: An AP, portable, upright chest radiograph is compared to study dated 01/22/2023. Correlation is made with chest CT dated 01/14/2023. The examination is degraded by portable technique and apical l ordotic positioning. An endotracheal tube and an enteric tube are unchanged in position. The heart is mildly enlarged. The pulmonary vasculature is noncongested. Bibasilar opacities likely represents at electasis. Trace pleural effusions are suspected. No pneumothorax is seen. The bony thorax is grossly intact. Surgical clips are noted in the left upper quadrant. IMPRESSION: 1. Stable lines and tubes. 2. Cardiomegaly without radiographic evidence of congestive failure. 3. Dependent airspace opacities likely represent atelectasis. Correlate clinically. 4. Suspect trace pleural effusions. ACT 112: Negative or not required by law. Electronically signed by: Dom Pelayo M.D. 01/24/2023 8:00 AM
[2023-01-24] MEDS ORDERED: HYDROmorphone INJ 1 MG/ML SYRINGE IV PRN (08:28)
[2023-01-24] MEDS ORDERED: methylPREDNISolone 40 MG in SYRINGE 0 ML IV STA (08:34)
--- NOTE | 2023-01-24 08:36 | Critical Care Progress Note ---
Date of Service January 24, 2023 Assessment & Plan (1) Encephalopathy acute: (2) Bicuspid aortic valve: (3) Viral encephalitis: (4) Fever: Plan Encephalopathy has essentially resolved. He remains diffusely weak. His weakness has considerably improved over the past 2 days. MRI brain, C-spine and T-spine from 01/23/2023 largely unrevealing. Mild stenosis noted at the C5-6/C6 region. Neurology input appreciated. Continue broad-spectrum antibiotics per ID. HIV negative. Fevers continue to be present, but less pronounced than yesterday. ESR and CRP mildly elevated 01/23/2023. KASIA cascade ordered. Empiric Solu-Medrol initiated and a dose of 60 mg IV 01/23/2023. We will continue with an additional dose of 40 mg IV Solu-Medrol today. Bronchoscopy from 01/17/2023 without evidence of positive cultures. Repeat procalcitonin negative. Repeat blood cultures from 01/23/2023 pending. Extubated successfully 01/24/2023. He was intubated for 9 days. Continue nasal cannula to maintain saturations of 92% and above. Echocardiogram with evidence of mild pulmonary hypertension. Bicuspid valve poorly visualized. Protonix discontinued due to the remote possibility of drug fever secondary to Protonix. Speech consult later today. PT/OT consulted as well. Discontinue Precedex. Discontinue IV fluids. Discontinue tube feeds. CRITICAL CARE TIME - I have personally spent 39 minutes of critical care time in the direct management of this patient. This is a life/limb threatening event. This includes time spent evaluating patient, direct bedside care, chart review, placing orders, interpretation of diagnostic studies, discussion with consultants, patient, and family members, as well as other required patient management activities. This time is exclusive of all separately billable procedures, and teaching time and separate from and in addition to any other critical care service time. Admission and Anticipated Discharge Date Admission Date: January 14, 2023 Subjective Patient seen and examined. He did well with a spontaneous breathing trial although still mildly tachypneic. We ultimately extubated the patient to nasal cannula. He is currently doing well. He does endorse some mild shortness of breath at rest. He denies any chest pain. He has a sore throat. is at bedside. Review of Systems Review of Systems: All systems reviewed & are unremarkable except as noted in HPI & below Physical Exam Physical Exam: Constitutional: No acute distress. Mildly anxious appearing. HEENT: EOMI, PERRLA Respiratory system: Decreased air entry bilaterally, no wheeze, no rhonchi, no stridor on exam. CVS: S1-S2 positive, no murmurs or gallops Abdomen: Soft, nontender, nondistended, positive bowel sounds x4 Extremities: +2 pulses bilaterally radialis/ dorsalis pedis, no cyanosis, no edema Neuro: Alert and oriented x3. Diffusely weak. Psych: Mildly anxious. G/U: Positive Aceves Skin: no rashes, warm and dry Lymphatic: no cervical or axillary lymphadenopathy Results & Data Results & Data Vital Signs (Past 12 Hours) Vital Signs Temp Pulse Pulse Resp BP Pulse Ox O2 Del Method 01/24/23 06:59 100 H 26 H 95 Mechanical Vent 01/24/23 06:56 100 H 19 95 01/24/23 06:00 37.6 C H 110 H 32 H 93 01/24/23 06:00 159/105 H 01/24/23 05:30 37.6 C H 100 H 29 H 93 01/24/23 04:45 37.6 C H 110 H 31 H 92 01/24/23 05:00 37.6 C H 107 H 33 H 143/87 H 92 01/24/23 04:00 37.6 C H 115 H 31 H 91 01/24/23 03:00 37.5 C 113 H 34 H 91 01/24/23 02:00 37.6 C H 102 H 34 H 91 01/24/23 02:00 150/120 H 01/24/23 01:00 37.7 C H 89 32 H 90 01/24/23 04:00 01/24/23 02:35 108 H 32 H 91 01/24/23 00:00 37.6 C H 91 H 29 H 90 01/24/23 00:00 114/75 01/23/23 23:30 37.6 C H 105 H 34 H 91 01/23/23 23:00 37.7 C H 92 H 30 H 90 01/23/23 22:45 106/74 01/23/23 22:45 37.7 C H 95 H 28 H 91 01/23/23 22:30 37.7 C H 98 H 29 H 91 01/23/23 22:30 139/98 01/23/23 22:00 37.8 C H 96 H 25 H 90 01/23/23 21:45 37.8 C H 97 H 26 H 90 01/23/23 21:45 110/77 01/23/23 21:31 129/91 01/23/23 21:31 37.6 C H 110 H 29 H 89 L 01/23/23 21:30 37.6 C H 112 H 26 H 90 01/23/23 21:01 131/106 H 01/23/23 21:01 37.5 C 106 H 30 H 94 01/23/23 21:00 37.5 C 104 H 26 H 93 01/23/23 20:30 37.4 C 94 H 31 H 90 01/23/23 20:30 101/74 01/24/23 00:00 01/23/23 23:44 86 28 H 90 01/23/23 20:49 106 H 25 H 92 FiO2 01/24/23 06:59 35 01/24/23 06:56 35 01/24/23 06:00 01/24/23 06:00 01/24/23 05:30 01/24/23 04:45 01/24/23 05:00 01/24/23 04:00 01/24/23 03:00 01/24/23 02:00 01/24/23 02:00 01/24/23 01:00 01/24/23 04:00 30 01/24/23 02:35 30 01/24/23 00:00 01/24/23 00:00 01/23/23 23:30 01/23/23 23:00 01/23/23 22:45 01/23/23 22:45 01/23/23 22:30 01/23/23 22:30 01/23/23 22:00 01/23/23 21:45 01/23/23 21:45 01/23/23 21:31 01/23/23 21:31 01/23/23 21:30 01/23/23 21:01 01/23/23 21:01 01/23/23 21:00 01/23/23 20:30 01/23/23 20:30 01/24/23 00:00 30 01/23/23 23:44 30 01/23/23 20:49 30 Coding Level of Care Code 03554 CRITICAL CARE 1ST 30-74M Diagnoses Encephalopathy acute G93.40 Bicuspid aortic valve Q23.1 Viral encephalitis A86 Fever R50.9 Time Spent (min) 39
[2023-01-24] MEDS: LEVALBUTEROL 1.25MG/0.5ML NEB NEB SCH ×2 (08:40→20:43)
[2023-01-24] MEDS: cefTRIAXone SODIUM 2,000 MG in DEXTROSE 5% 50 ML IV SCH ×2 (10:22→22:03)
[2023-01-24] MEDS ORDERED: METOPROLOL TARTRATE 1 MG/ML VIAL IV STA ×2 (10:56→13:18)
--- NOTE | 2023-01-24 12:47 | Neurology Progress Note ---
Date of Service January 24, 2023 Assessment & Plan (1) Viral meningoencephalitis: (2) Muscle weakness (generalized): Plan patient has a viral meningoencephalitis. He is recovering and no specific organism was otherwise identified. There was an equivocal Lyme IgM and he is being covered for line meningoencephalitis With IV ceftriaxone. He is weak in general. CKs were elevated early in admission. On neurologic examination he displays a myopathic weakness arms greater than legs. This could be critical illness or acute steroid myopathy . In any event, he is already showing signs of improvement. He has no signs of neuropathy and he does not seem to be encephalopathic currently. He has very mild cervical spinal stenosis at C5-6 due to a disc which is not affecting the spinal cord. There is no signs of myelopathy on exam. Recommendations: 1. Physical, occupational, and speech therapy consults. Increase activity as able. 2. Finish IV Rocephin course, but will defer to Infectious Disease. 3. There is no need for additional neurologic testing at this time. Overall, I spent a total of 50 minutes with this case including review of records, review of MRI films, direct evaluation the patient at bedside, reports generation, and discussion of the case with the patient and family at bedside, RN at bedside, and Dr. Santiago including differential diagnosis and treatment options. Admission and Anticipated Discharge Date Admission Date: January 14, 2023 Subjective Patient has been extubated earlier today and feels weak in general. He is very hoarse but has no pain or headache. Nursing reports no seizure activity or other abnormalities. The patient had an LP on admission with 870 white cells ( 99% monos) with a protein of 160 and 3 red cells. Glucose was normal at 49 compared to serum he was seen by ID and felt to have a viral meningoencephalitis. There was a question of Lyme disease but he had 1 band on IgM and no bands on IgG he is still being covered with Rocephin. MRI of the brain was unremarkable January 23. I reviewed this film. MRI of the cervical spine and a mild spinal stenosis from a C5-6 disc protrusion with no cord impingement. MRI of the thoracic spine was unremarkable as well. I reviewed all of these MRI films. CT angiography of the head neck on admission was unremarkable with no significant stenoses. He had no stroke. Results & Data Vital Signs (Past 12 Hours) Vital Signs Temp Pulse Pulse Resp BP Pulse Ox O2 Del Method 06/06/23 11:19 126 H 156/109 H 01/24/23 08:01 37.5 C 105 H 34 H 95 Mechanical Vent 01/24/23 08:01 114/86 01/24/23 08:00 37.5 C 105 H 34 H 93 01/24/23 07:00 37.6 C H 117 H 32 H 93 01/24/23 08:32 Aerosol Mask 01/24/23 06:59 100 H 26 H 95 Mechanical Vent 01/24/23 06:56 100 H 19 95 01/24/23 06:00 37.6 C H 110 H 32 H 93 01/24/23 06:00 159/105 H 01/24/23 05:30 37.6 C H 100 H 29 H 93 01/24/23 04:45 37.6 C H 110 H 31 H 92 01/24/23 05:00 37.6 C H 107 H 33 H 143/87 H 92 01/24/23 04:00 37.6 C H 115 H 31 H 91 01/24/23 03:00 37.5 C 113 H 34 H 91 01/24/23 02:00 37.6 C H 102 H 34 H 91 01/24/23 02:00 150/120 H 01/24/23 01:00 37.7 C H 89 32 H 90 01/24/23 04:00 01/24/23 02:35 108 H 32 H 91 FiO2 01/24/23 11:19 01/24/23 08:01 0.3 01/24/23 08:01 01/24/23 08:00 01/24/23 07:00 01/24/23 08:32 0.3 01/24/23 06:59 35 01/24/23 06:56 35 01/24/23 06:00 01/24/23 06:00 01/24/23 05:30 01/24/23 04:45 01/24/23 05:00 01/24/23 04:00 01/24/23 03:00 01/24/23 02:00 01/24/23 02:00 01/24/23 01:00 01/24/23 04:00 30 01/24/23 02:35 30 Exam (Neuro) Physical Exam: He is awake and alert. He is very hoarse but can whisper words. He knows his 's name and where he is. He thought he was 50 years old. Extraocular eye muscles are intact without nystagmus. Pupils are 4 mm bilaterally reactive to light. There is no facial droop or asymmetry. Tongue is midline and feel strong. Palate raises. He is very weak proximally in the upper extremities ( 2-3/5). Distally in the upper extremities he is 4/5. In the legs he is 4/5 proximally and 4+/5 distally Bilaterally. Reflexes 2/4 in the quadriceps and Achilles tendons bilaterally and toes are downgoing with plantar stimulation bilaterally. Reflexes are 1/4 in the upper extremities. Sensory is intact he withdrawals in all 4 limbs. Sitting up is hard as it makes him very lightheaded, but he can hold to a degree. PG Care Time/CCT Total # of Minutes Spent Total Time Spent with Patient: Total time spent is greater than 50% in coordination of care (as documented) at patient's floor/unit and/or counseling patient: Coding Level of Care Code 53961 SUB INP/OBS CARE 3/50MIN Diagnoses Viral meningoencephalitis A86 Muscle weakness (generalized) M62.81 Time Spent (min) 50
[2023-01-24] MEDS ORDERED: cloNIDine HCL 0.1 MG TAB PO ONE (15:23)
[2023-01-24] MEDS: METOPROLOL TARTRATE 1 MG/ML VIAL IV SCH ×2 (15:59→19:48)
--- NOTE | 2023-01-24 18:32 | Billing Data ---
Date of Service January 24, 2023 Coding Level of Care Code 61393 SUB INP/OBS CARE
[2023-01-24] MEDS ORDERED: clonazePAM 0.5 MG TAB PO STA (18:38)
[2023-01-24] MEDS: MAGNESIUM HYDROXIDE SUSP 30 ML UDC PO PRN (18:44)
[2023-01-24] MEDS ORDERED: LEVALBUTEROL 1.25 MG/3 ML NEB ONE (19:52)
[2023-01-25] MEDS: METOPROLOL TARTRATE 1 MG/ML VIAL IV SCH ×3 (01:41→08:08)
[2023-01-25 04:27] LABS: Basophils # (auto) 0.06 K/uL (0-0.2); Basophils % (auto) 0.5 %; Eosinophils # (auto) 0.06 K/uL (0-0.50); Eosinophils % (auto) 0.5 %; Hematocrit (blood only) 43.2 % (42.0-52.0); Hemoglobin 14.4 g/dl (14.0-18.0); Immature Granulocytes # (auto) 0.08 K/uL (0.01-0.20); Immature Granulocytes % (auto) 0.7 %; Lymphocytes # (auto) 1.34 K/uL (1.2-3.4); Lymphocytes % (auto) 11.9 %; Mean Corpuscular Hemoglobin 28.6 pg (25.0-34.0); Mean Corpuscular Hgb Conc 33.3 g/dL (32.0-36.0); Mean Corpuscular Volume 85.9 fL (80.0-100.0); Mean Platelet Volume 9.9 fL (9.4-12.4); Monocytes # (auto) 1.06 K/uL (0.11-0.59); Monocytes % (auto) 9.4 %; Neutrophils # (auto) 8.63 K/uL (1.40-6.50); Platelet Count 265 K/uL (130-400); RDW Coefficient of Variation 12.9 % (11.5-14.5); RDW Standard Deviation 39.8 fL (36.4-46.3); Red Blood Count 5.03 M/uL (4.70-6.10); White Blood Count 11.23 K/ul (4.8-10.8)
[2023-01-25 04:41] LABS: BUN Creatinine Ratio 46.2 (10-20); Calcium 9.2 mg/dl (8.6-10.3); Creatinine Clr Calc Pharmacy 154.1 ml/min; Est GFR (African American) 130.6 ml/min; Est GFR (Non-African American) 112.6 ml/min; Magnesium 2.4 mg/dl (1.7-2.4); Phosphorus 2.5 mg/dl (2.5-4.9)
--- NOTE | 2023-01-25 05:25 | Electrocardiogram Report ---
Test Reason : Blood Pressure : / mmHG Vent. Rate : 094 BPM Atrial Rate : 094 BPM P-R Int : 134 ms QRS Dur : 082 ms QT Int : 376 ms P-R-T Axes : 031 009 014 degrees QTc Int : 470 ms Normal sinus rhythm Possible Left atrial enlargement Borderline ECG When compared with ECG of 19-JAN-2023 05:14, No significant change was found Confirmed by Barry Gallardo ([id number]) on 01/25/2023 5:24:47 AM Referred By: REFERRED SELF Confirmed By:Barry Gallardo
[2023-01-25] MEDS: ICU ELECTROLYTE REPLACEMENT PROTOCOL SCH (06:16)
[2023-01-25] MEDS ORDERED: LEVALBUTEROL 1.25 MG/3 ML NEB ONE ×2 (07:00→19:03)
[2023-01-25] MEDS: LEVALBUTEROL 1.25MG/0.5ML NEB NEB SCH ×2 (07:14→19:52)
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
[2023-01-25] MEDS: ENOXAPARIN INJ 40 MG/0.4 ML SYR SQ SCH (08:08)
[2023-01-25] MEDS: DOCUSATE SODIUM/SENNA 50/8.6MG TAB PO SCH ×2 (08:08→22:23)
[2023-01-25] MEDS: DOXYCYCLINE HYCLATE 100 MG in DEXTROSE 5% 100 ML IV SCH ×2 (08:12→22:50)
--- NOTE | 2023-01-25 09:01 | Critical Care Progress Note ---
Date of Service January 25, 2023 Assessment & Plan (1) Encephalopathy acute: (2) Bicuspid aortic valve: (3) Viral encephalitis: (4) Fever: Plan Encephalopathy has essentially resolved. He remains diffusely weak. MRI brain, C-spine and T-spine from 01/23/2023 largely unrevealing. Mild stenosis noted at the C5-6/C6 region. Neurology input appreciated. Continue broad-spectrum antibiotics per ID. HIV negative. Fever curve improving. ESR and CRP mildly elevated 01/23/2023. KASIA cascade ordered. We will hold off on further IV steroids unless recommended by neurology. Bronchoscopy from 01/17/2023 without evidence of positive cultures. Repeat procalcitonin negative. Repeat blood cultures from 01/23/2023 pending. Extubated successfully 01/24/2023. He was intubated for 9 days. Continue nasal cannula to maintain saturations of 92% and above. Echocardiogram with evidence of mild pulmonary hypertension. Bicuspid valve poorly visualized. Protonix discontinued due to the remote possibility of drug fever secondary to Protonix. Speech consult. PT/OT consulted as well. Transition IV metoprolol to oral metoprolol. Patient stable to transfer to PCU. Admission and Anticipated Discharge Date Admission Date: January 14, 2023 Subjective Patient remains extubated. His voice is quite weak and his extremities still remain weak. Remains tachycardic at times. He denies any chest pain or shortness of breath. His activity level remains very low due to weakness. His is at bedside. Review of Systems Review of Systems: All systems reviewed & are unremarkable except as noted in HPI & below Physical Exam Physical Exam: Constitutional: No acute distress. Mildly anxious appearing. HEENT: EOMI, PERRLA Respiratory system: Decreased air entry bilaterally, no wheeze, no rhonchi, no stridor on exam. CVS: S1-S2 positive, no murmurs or gallops Abdomen: Soft, nontender, nondistended, positive bowel sounds x4 Extremities: +2 pulses bilaterally radialis/ dorsalis pedis, no cyanosis, no edema Neuro: Alert and oriented x3. Diffusely weak. Psych: Mildly anxious. G/U: Positive Aceves Skin: no rashes, warm and dry Lymphatic: no cervical or axillary lymphadenopathy Results & Data Results & Data Vital Signs (Past 12 Hours) Vital Signs Temp Pulse Pulse Resp BP BP Pulse Ox 01/25/23 08:00 01/25/23 08:00 36.8 C 123 H 26 H 146/103 H 96 01/25/23 08:08 123 H 146/103 H 01/25/23 07:15 119 H 26 H 100 01/25/23 06:00 114 H 32 H 97 01/25/23 06:00 158/106 H 01/25/23 05:00 113 H 29 H 98 01/25/23 05:00 159/112 H 01/25/23 04:00 129 H 41 H 91 01/25/23 04:00 171/102 H 01/25/23 03:00 124 H 37 H 94 01/25/23 03:00 155/101 H 01/25/23 02:00 121 H 35 H 96 01/25/23 02:00 150/106 H 01/25/23 01:00 117 H 33 H 96 01/25/23 01:00 151/103 H 01/25/23 00:00 117 H 25 H 96 01/25/23 00:00 150/93 H 01/25/23 04:03 126 H 171/102 H 01/25/23 01:41 118 H 151/103 H 01/24/23 23:30 37 C 118 H 35 H 96 01/24/23 23:00 120 H 35 H 96 01/24/23 23:00 147/99 H 01/24/23 22:30 122 H 37 H 97 01/24/23 22:00 117 H 32 H 97 01/24/23 22:00 146/99 H 01/24/23 21:30 112 H 34 H 98 O2 Del Method O2 Flow Rate 01/25/23 08:00 Nasal Cannula 2 01/25/23 08:00 Nasal Cannula 2 01/25/23 08:08 01/25/23 07:15 Nasal Cannula 5 01/25/23 06:00 01/25/23 06:00 01/25/23 05:00 01/25/23 05:00 01/25/23 04:00 01/25/23 04:00 01/25/23 03:00 01/25/23 03:00 01/25/23 02:00 01/25/23 02:00 01/25/23 01:00 01/25/23 01:00 01/25/23 00:00 01/25/23 00:00 01/25/23 04:03 01/25/23 01:41 01/24/23 23:30 01/24/23 23:00 01/24/23 23:00 01/24/23 22:30 01/24/23 22:00 01/24/23 22:00 01/24/23 21:30 Coding Level of Care Code 23168 SUB INP/OBS CARE 2/35MIN Diagnoses Encephalopathy acute G93.40 Bicuspid aortic valve Q23.1 Viral encephalitis A86 Fever R50.9
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
[2023-01-25] MEDS: cefTRIAXone SODIUM 2,000 MG in DEXTROSE 5% 50 ML IV SCH ×2 (11:28→22:49)
[2023-01-25] MEDS: METOPROLOL TARTRATE 25 MG TAB PO SCH ×2 (14:04→22:23)
--- NOTE | 2023-01-25 16:43 | Billing Data ---
Date of Service January 25, 2023 Coding Level of Care Code 43320 SUB INP/OBS CARE MIN
[2023-01-25] MEDS ORDERED: OPTIRAY 320 500ml IV ONE (21:22)
--- NOTE | 2023-01-25 21:42 | CT Scan Report ---
Exam(s): CT HEAD Without Contrast EXAM: CT Head Without Intravenous Contrast CLINICAL HISTORY: Reason for exam: neuro deficit, acute stroke suspected. TECHNIQUE: Axial computed tomography images of the head/brain without intravenous contrast. CTDI is 44.21 mGy and DLP is 774.27 mGy-cm. Automated exposure control was utilized for the study. A dose lowering technique was utilized adhering to the principles of ALARA. COMPARISON: CT head 01/14/2023. MRI brain 01/23/2023. FINDINGS: Brain: Unremarkable. No hemorrhage. No significant white matter disease. No edema. Ventricles: Unremarkable. No ventriculomegaly. Bones/joints: Unremarkable. No acute fracture. Soft tissues: Unremarkable. Sinuses: Unremarkable as visualized. Mastoid air cells: Trace right mastoid effusion. IMPRESSION: No intracranial hemorrhage or evidence of large territorial infarction. Communications: Call Doctor Stroke Electronically signed by: Mathew Sung MD 01/25/23 21:40 PM
--- NOTE | 2023-01-25 21:45 | CT Scan Report ---
Exam(s): CTA HEAD With Contrast IV Amt: 112ml OPTIRAY 320 EXAM: CT Angiography Head With Intravenous Contrast CLINICAL HISTORY: Reason for exam: neuro deficit, acute stroke suspected. TECHNIQUE: Axial computed tomographic angiography images of the head with intravenous contrast. CTDI is 33.21 mGy and DLP is 16.61 mGy-cm. Automated exposure control was utilized for the study. A dose lowering technique was utilized adhering to the principles of ALARA. MIP reconstructed images were created and reviewed. CONTRAST: Patient received 112ml OPTIRAY 320 of IV contrast COMPARISON: CT head and neck angiogram 01/15/2023. FINDINGS: Right internal carotid artery: No acute findings. Intracranial segment is patent with no significant stenosis. No aneurysm. Right anterior cerebral artery: Unremarkable. No occlusion or significant stenosis. No aneurysm. Right middle cerebral artery: Unremarkable. No occlusion or significant stenosis. No aneurysm. Right posterior cerebral artery: Unremarkable. No occlusion or significant stenosis. No aneurysm. Right vertebral artery: Unremarkable as visualized. Left internal carotid artery: No acute findings. Intracranial segment is patent with no significant stenosis. No aneurysm. Left anterior cerebral artery: Unremarkable. No occlusion or significant stenosis. No aneurysm. Left middle cerebral artery: Unremarkable. No occlusion or significant stenosis. No aneurysm. Left posterior cerebral artery: Unremarkable. No occlusion or significant stenosis. No aneurysm. Left vertebral artery: Unremarkable as visualized. Basilar artery: Unremarkable. No occlusion or significant stenosis. No aneurysm. IMPRESSION: No large vessel occlusion. Communications: Call Doctor Stroke Electronically signed by: Mathew Sung MD 01/25/23 21:44 PM
--- NOTE | 2023-01-25 21:46 | CT Scan Report ---
Exam(s): CTA NECK With Contrast IV Amt: 112ml OPTIRAY 320 EXAM: CT Angiography Neck With Intravenous Contrast CLINICAL HISTORY: Reason for exam: neuro deficit, acute stroke suspected. TECHNIQUE: Routine carotid CT angiography protocol was performed with intravenous contrast. NASCET criteria using the distal ICAs for comparison were used for evaluation of stenoses. CTDI is 12.73 mGy and DLP is 535.22 mGy-cm. Automated exposure control was utilized for the study. A dose lowering technique was utilized adhering to the principles of ALARA. MIP reconstructed images were created and reviewed. CONTRAST: Patient received 112ml OPTIRAY 320 of IV contrast COMPARISON: CT neck angiogram 01/15/2023. FINDINGS: VASCULATURE: Right common carotid artery: Unremarkable. No occlusion or significant stenosis. No dissection. Right internal carotid artery: Unremarkable. Extracranial segment is patent with no occlusion or significant stenosis. No dissection. Right external carotid artery: Unremarkable. No occlusion. Right vertebral artery: Unremarkable. No occlusion or significant stenosis. No dissection. Left common carotid artery: Unremarkable. No occlusion or significant stenosis. No dissection. Left internal carotid artery: Unremarkable. Extracranial segment is patent with no occlusion or significant stenosis. No dissection. Left external carotid artery: Unremarkable. No occlusion. Left vertebral artery: Unremarkable. No occlusion or significant stenosis. No dissection. NECK: Bones/joints: Unremarkable. Soft tissues: Unremarkable. Lung apices: Clear. CAROTID STENOSIS REFERENCE USING NASCET CRITERIA: % ICA stenosis = (1 - narrowest ICA diameter/diameter of distal cervical ICA) x 100. Mild - <50% stenosis. Moderate - 50-69% stenosis. Severe - 70-94% stenosis. Near occlusion - 95-99% stenosis. Occluded - 100% stenosis. IMPRESSION: No dissection, pseudoaneurysm, or hemodynamically significant stenosis of the carotid or vertebral arteries. Communications: Call Doctor Stroke Electronically signed by: Mathew Sung MD 01/25/23 21:46 PM
[2023-01-25] MEDS: LACTATED RINGER'S 1,000 ML IV SCH (22:51)
[2023-01-25] MEDS ORDERED: GADOBUTROL 65ML VIAL IV ONE (23:18)
--- NOTE | 2023-01-25 23:45 | Magnetic Resonance Report ---
MRI OF THE BRAIN COMBO CLINICAL HISTORY: Strokelike symptoms. COMPARISON STUDY: CT of the brain dated 01/25/2023. MRI of the brain dated 01/23/2023. TECHNIQUE: MRI of the brain was performed utilizing various T1 and T2-weighted sequences in the axial , sagittal, and coronal planes. Contrast-enhanced sequences were acquired following the administratio n of 10 cc of Gadavist. The examination is modestly degraded by motion artifact. FINDINGS: Brain parenchyma: There is minimal microcatheter catheter change. The brain parenchyma is otherwise n ormal in appearance. There is no hemorrhage or mass effect. There is no restricted diffusion to sugge st acute ischemia. No enhancing mass lesion is identified on the postcontrast images. Pro-white paras er differentiation is preserved. No extra-axial fluid collection is seen. The cerebellar tonsils are normal in configuration. Ventricles, sulci, and cisterns: Normal in configuration. Pituitary and sella: Unremarkable. Intracranial vasculature: Normal flow voids are maintained at the skull base. Orbits: The bony orbits are grossly intact. Orbital contents are normal in appearance. Sinuses and mastoids: There are small mastoid effusions, right larger than left. The paranasal sinuse s are clear. Calvarium: Unremarkable. Cervical cord: Partially visualized cervical spinal cord is normal in morphology and signal intensity . IMPRESSION: No acute intracranial abnormality. No significant change from 01/23/2023. ACT 112: Negative or not required by law. Electronically signed by: Dom Pelayo M.D. 01/25/2023 11:43 PM
[2023-01-26 03:51] LABS: Basophils # (auto) 0.05 K/uL (0-0.2); Basophils % (auto) 0.4 %; Eosinophils # (auto) 0.18 K/uL (0-0.50); Eosinophils % (auto) 1.5 %; Hematocrit (blood only) 45.3 % (42.0-52.0); Hemoglobin 15.2 g/dl (14.0-18.0); Immature Granulocytes # (auto) 0.05 K/uL (0.01-0.20); Immature Granulocytes % (auto) 0.4 %; Lymphocytes # (auto) 1.25 K/uL (1.2-3.4); Lymphocytes % (auto) 10.4 %; Mean Corpuscular Hemoglobin 28.8 pg (25.0-34.0); Mean Corpuscular Hgb Conc 33.6 g/dL (32.0-36.0); Mean Platelet Volume 9.8 fL (9.4-12.4); Monocytes # (auto) 1.05 K/uL (0.11-0.59); Monocytes % (auto) 8.8 %; Neutrophils # (auto) 9.41 K/uL (1.40-6.50); Neutrophils % (auto) 78.5 %; Platelet Count 277 K/uL (130-400); RDW Coefficient of Variation 12.8 % (11.5-14.5); RDW Standard Deviation 39.3 fL (36.4-46.3); Red Blood Count 5.27 M/uL (4.70-6.10); White Blood Count 11.99 K/ul (4.8-10.8)
[2023-01-26 04:04] LABS: BUN Creatinine Ratio 41.9 (10-20); Calcium 9.2 mg/dl (8.6-10.3); Creatinine Clr Calc Pharmacy 162.4 ml/min; Est GFR (African American) 133.1 ml/min; Est GFR (Non-African American) 114.9 ml/min; Potassium 4.1 mmol/L (3.5-5.1)
[2023-01-26] MEDS ORDERED: LEVALBUTEROL 1.25 MG/3 ML NEB ONE (07:10)
[2023-01-26] MEDS: LEVALBUTEROL 1.25MG/0.5ML NEB NEB SCH ×2 (07:12→20:11)
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
[2023-01-26] MEDS: DOCUSATE SODIUM/SENNA 50/8.6MG TAB PO SCH ×2 (07:59→20:23)
[2023-01-26] MEDS: DOXYCYCLINE HYCLATE 100 MG in DEXTROSE 5% 100 ML IV SCH ×2 (08:01→20:23)
[2023-01-26] MEDS: ENOXAPARIN INJ 40 MG/0.4 ML SYR SQ SCH (08:01)
[2023-01-26] MEDS: LACTATED RINGER'S 1,000 ML IV SCH ×3 (08:02→22:22)
[2023-01-26] MEDS: METOPROLOL TARTRATE 25 MG TAB PO SCH ×3 (11:01→20:23)
[2023-01-26] MEDS: cefTRIAXone SODIUM 2,000 MG in DEXTROSE 5% 50 ML IV SCH ×2 (11:10→22:22)
[2023-01-26 12:43] LABS: Anti Nuclear Antibody Screen POSITIVE (NEGATIVE)
[2023-01-26 14:48] LABS: Chromatin <1.0 NEG AI (<1.0 NEG); RNP AB <1.0 NEG AI (<1.0 NEG); Sm Ab <1.0 NEG AI (<1.0 NEG); Sm/RNP <1.0 NEG AI (<1.0 NEG); ds DNA <1 IU/mL
[2023-01-26 14:50] LABS: Centromere B Antibody <1.0 NEG AI (<1.0 NEG); Jo-1 Antibody <1.0 NEG AI (<1.0 NEG); Ribosomal P Antibody <1.0 NEG AI (<1.0 NEG); SS-B Ab <1.0 NEG AI (<1.0 NEG); SSA Antibody <1.0 NEG AI (<1.0 NEG); Scleroderma Ab <1.0 NEG AI (<1.0 NEG)
--- NOTE | 2023-01-26 17:03 | Billing Data ---
Date of Service January 26, 2023 Coding Level of Care Code 13605 SUB INP/OBS CARE MIN
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
[2023-01-27] MEDS: HYDROmorphone INJ 0.5 MG/0.5 ML SYR IV PRN (04:07)
[2023-01-27 05:05] LABS: Basophils # (auto) 0.06 K/uL (0-0.2); Basophils % (auto) 0.6 %; Eosinophils # (auto) 0.18 K/uL (0-0.50); Eosinophils % (auto) 1.7 %; Hematocrit (blood only) 43.3 % (42.0-52.0); Hemoglobin 14.9 g/dl (14.0-18.0); Immature Granulocytes # (auto) 0.05 K/uL (0.01-0.20); Immature Granulocytes % (auto) 0.5 %; Lymphocytes # (auto) 0.99 K/uL (1.2-3.4); Lymphocytes % (auto) 9.6 %; Mean Corpuscular Hgb Conc 34.4 g/dL (32.0-36.0); Mean Corpuscular Volume 84.2 fL (80.0-100.0); Mean Platelet Volume 9.2 fL (9.4-12.4); Monocytes % (auto) 8.7 %; Neutrophils # (auto) 8.15 K/uL (1.40-6.50); Neutrophils % (auto) 78.9 %; Platelet Count 258 K/uL (130-400); RDW Coefficient of Variation 12.6 % (11.5-14.5); RDW Standard Deviation 38.4 fL (36.4-46.3); Red Blood Count 5.14 M/uL (4.70-6.10); White Blood Count 10.33 K/ul (4.8-10.8)
[2023-01-27 05:24] LABS: BUN Creatinine Ratio 39.1 (10-20); Creatinine Clr Calc Pharmacy 159.1 ml/min; Est GFR (African American) 131.4 ml/min; Est GFR (Non-African American) 113.4 ml/min; Potassium 4.2 mmol/L (3.5-5.1)
[2023-01-27] MEDS ORDERED: LEVALBUTEROL 1.25 MG/3 ML NEB ONE ×2 (06:47→19:14)
[2023-01-27] MEDS: LEVALBUTEROL 1.25MG/0.5ML NEB NEB SCH ×2 (06:56→19:41)
[2023-01-27] MEDS: DOXYCYCLINE HYCLATE 100 MG in DEXTROSE 5% 100 ML IV SCH ×2 (08:14→23:35)
[2023-01-27] MEDS: DOCUSATE SODIUM/SENNA 50/8.6MG TAB PO SCH ×2 (08:15→20:55)
[2023-01-27] MEDS: ENOXAPARIN INJ 40 MG/0.4 ML SYR SQ SCH (08:15)
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
[2023-01-27] MEDS ORDERED: METOPROLOL TARTRATE 1 MG/ML VIAL IV STA (09:37)
[2023-01-27] MEDS: METOPROLOL TARTRATE 25 MG TAB PO SCH ×3 (09:42→20:56)
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
[2023-01-27] MEDS: cefTRIAXone SODIUM 2,000 MG in DEXTROSE 5% 50 ML IV SCH ×2 (10:45→21:12)
[2023-01-27 10:47] LABS: Lyme DNA PCR CSF or Synovial Not Detected (Not Detected); Lyme DNA Source CSF; Viral Culture CMV DNR; Viral Culture Enterovirus DNR; Viral Culture HSV1 DNR; Viral Culture HSV2 DNR; Viral Culture Varicella Zoster DNR; West Nile Virus, PCR Source CSF; West Nile Virus, PCR, CSF NOT DETECTED (NOT DETECTED)
[2023-01-27] MEDS: LACTATED RINGER'S 1,000 ML IV SCH ×2 (11:58→21:12)
--- NOTE | 2023-01-27 16:44 | Billing Data ---
Date of Service January 27, 2023 Coding Level of Care Code 18518 SUB INP/OBS CARE MIN
[2023-01-28 04:34] LABS: Hemoglobin 13.9 g/dl (14.0-18.0); Mean Corpuscular Hemoglobin 28.7 pg (25.0-34.0); Mean Corpuscular Hgb Conc 34.8 g/dL (32.0-36.0); Mean Corpuscular Volume 82.5 fL (80.0-100.0); Mean Platelet Volume 9.6 fL (9.4-12.4); Platelet Count 258 K/uL (130-400); RDW Coefficient of Variation 12.4 % (11.5-14.5); RDW Standard Deviation 37.3 fL (36.4-46.3); Red Blood Count 4.85 M/uL (4.70-6.10); White Blood Count 10.21 K/ul (4.8-10.8)
[2023-01-28 04:46] LABS: BUN Creatinine Ratio 32.1 (10-20); Calcium 9.1 mg/dl (8.6-10.3); Creatinine Clr Calc Pharmacy 192.1 ml/min; Est GFR (Non-African American) 122.5 ml/min
[2023-01-28] MEDS: LACTATED RINGER'S 1,000 ML IV SCH ×3 (05:44→20:47)
[2023-01-28] MEDS ORDERED: LEVALBUTEROL 1.25 MG/3 ML NEB ONE ×2 (07:50→19:07)
[2023-01-28] MEDS: LEVALBUTEROL 1.25MG/0.5ML NEB NEB SCH ×2 (07:58→19:51)
[2023-01-28] MEDS: DOCUSATE SODIUM/SENNA 50/8.6MG TAB PO SCH ×2 (08:15→20:43)
[2023-01-28] MEDS: ENOXAPARIN INJ 40 MG/0.4 ML SYR SQ SCH (08:18)
[2023-01-28] MEDS: METOPROLOL TARTRATE 25 MG TAB PO SCH ×3 (08:19→20:43)
[2023-01-28] MEDS: DOXYCYCLINE HYCLATE 100 MG in DEXTROSE 5% 100 ML IV SCH ×2 (08:19→20:46)
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
[2023-01-28] MEDS: cefTRIAXone SODIUM 2,000 MG in DEXTROSE 5% 50 ML IV SCH ×2 (10:49→22:32)
--- NOTE | 2023-01-28 17:01 | Billing Data ---
Date of Service January 28, 2023 Coding Level of Care Code 50973 SUB INP/OBS CARE MIN
[2023-01-28] MEDS: HYDROmorphone INJ 0.5 MG/0.5 ML SYR IV PRN (23:28)
[2023-01-29 04:41] LABS: Basophils # (auto) 0.07 K/uL (0-0.2); Basophils % (auto) 0.8 %; Eosinophils # (auto) 0.24 K/uL (0-0.50); Eosinophils % (auto) 2.7 %; Hematocrit (blood only) 40.9 % (42.0-52.0); Hemoglobin 14.3 g/dl (14.0-18.0); Immature Granulocytes # (auto) 0.02 K/uL (0.01-0.20); Immature Granulocytes % (auto) 0.2 %; Lymphocytes # (auto) 0.87 K/uL (1.2-3.4); Mean Corpuscular Hemoglobin 29.1 pg (25.0-34.0); Mean Corpuscular Volume 83.1 fL (80.0-100.0); Mean Platelet Volume 9.1 fL (9.4-12.4); Monocytes # (auto) 0.56 K/uL (0.11-0.59); Monocytes % (auto) 6.4 %; Neutrophils # (auto) 6.98 K/uL (1.40-6.50); Neutrophils % (auto) 79.9 %; Platelet Count 219 K/uL (130-400); RDW Coefficient of Variation 12.7 % (11.5-14.5); RDW Standard Deviation 38.1 fL (36.4-46.3); Red Blood Count 4.92 M/uL (4.70-6.10); White Blood Count 8.74 K/ul (4.8-10.8)
[2023-01-29 04:56] LABS: Albumin Level 3.6 gm/dl (3.4-5.0); Bilirubin,Total 0.7 mg/dl (0.2-1.0)
[2023-01-29 05:02] LABS: Albumin Globulin Ratio 1.3 (0.9-2); BUN Creatinine Ratio 25.8 (10-20); Creatinine Clr Calc Pharmacy 162.4 ml/min; Est GFR (African American) 133.1 ml/min; Est GFR (Non-African American) 114.9 ml/min; Globulin 2.7 gm/dl (2.5-4.0); Total Protein 6.3 gm/dl (6.0-8.3)
[2023-01-29] MEDS ORDERED: LEVALBUTEROL 1.25 MG/3 ML NEB ONE (07:11)
[2023-01-29] MEDS: LACTATED RINGER'S 1,000 ML IV SCH ×3 (07:39→20:09)
[2023-01-29] MEDS: LEVALBUTEROL 1.25MG/0.5ML NEB NEB SCH ×2 (08:12→20:22)
[2023-01-29] MEDS: METOPROLOL TARTRATE 25 MG TAB PO SCH ×3 (08:36→20:07)
[2023-01-29] MEDS: DOXYCYCLINE HYCLATE 100 MG in DEXTROSE 5% 100 ML IV SCH ×2 (08:36→20:09)
[2023-01-29] MEDS: ENOXAPARIN INJ 40 MG/0.4 ML SYR SQ SCH (08:36)
[2023-01-29] MEDS: DOCUSATE SODIUM/SENNA 50/8.6MG TAB PO SCH ×2 (08:37→20:07)
[2023-01-29] MEDS: cefTRIAXone SODIUM 2,000 MG in DEXTROSE 5% 50 ML IV SCH ×2 (09:22→21:28)
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
--- NOTE | 2023-01-29 17:01 | Billing Data ---
Date of Service January 29, 2023 Coding Level of Care Code 20803 SUB INP/OBS CARE MIN
[2023-01-29] MEDS: HYDROmorphone INJ 0.5 MG/0.5 ML SYR IV PRN (21:28)
[2023-01-30 04:53] LABS: Basophils # (auto) 0.05 K/uL (0-0.2); Basophils % (auto) 0.7 %; Eosinophils # (auto) 0.22 K/uL (0-0.50); Eosinophils % (auto) 3.1 %; Hematocrit (blood only) 39.3 % (42.0-52.0); Hemoglobin 13.6 g/dl (14.0-18.0); Immature Granulocytes # (auto) 0.02 K/uL (0.01-0.20); Immature Granulocytes % (auto) 0.3 %; Lymphocytes % (auto) 11.4 %; Mean Corpuscular Hemoglobin 28.5 pg (25.0-34.0); Mean Corpuscular Hgb Conc 34.6 g/dL (32.0-36.0); Mean Corpuscular Volume 82.4 fL (80.0-100.0); Mean Platelet Volume 9.4 fL (9.4-12.4); Monocytes # (auto) 0.54 K/uL (0.11-0.59); Monocytes % (auto) 7.7 %; Neutrophils # (auto) 5.38 K/uL (1.40-6.50); Neutrophils % (auto) 76.8 %; Platelet Count 230 K/uL (130-400); RDW Coefficient of Variation 12.9 % (11.5-14.5); RDW Standard Deviation 38.1 fL (36.4-46.3); Red Blood Count 4.77 M/uL (4.70-6.10); White Blood Count 7.01 K/ul (4.8-10.8)
[2023-01-30 05:11] LABS: BUN Creatinine Ratio 26.7 (10-20); Calcium 9.2 mg/dl (8.6-10.3); Creatinine Clr Calc Pharmacy 167.9 ml/min; Est GFR (African American) 134.9 ml/min; Est GFR (Non-African American) 116.4 ml/min; Potassium 3.8 mmol/L (3.5-5.1)
[2023-01-30] MEDS: LACTATED RINGER'S 1,000 ML IV SCH ×3 (05:48→15:56)
[2023-01-30] MEDS: METOPROLOL TARTRATE 25 MG TAB PO SCH ×3 (08:18→20:23)
[2023-01-30] MEDS: ENOXAPARIN INJ 40 MG/0.4 ML SYR SQ SCH (08:18)
[2023-01-30] MEDS: DOCUSATE SODIUM/SENNA 50/8.6MG TAB PO SCH ×2 (08:19→20:23)
[2023-01-30] MEDS: DOXYCYCLINE HYCLATE 100 MG in DEXTROSE 5% 100 ML IV SCH ×2 (09:18→20:25)
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
[2023-01-30 11:52] LABS: Source BAL RLL
[2023-01-30] MEDS: cefTRIAXone SODIUM 2,000 MG in DEXTROSE 5% 50 ML IV SCH ×2 (12:56→22:16)
[2023-01-30] MEDS: HYDROmorphone INJ 0.5 MG/0.5 ML SYR IV PRN ×2 (13:20→20:25)
[2023-01-30] MEDS: ONDANSETRON INJ 2 MG/ML 2 ML VIAL IV SCH (15:58)
[2023-01-31] MEDS: LACTATED RINGER'S 1,000 ML IV SCH ×2 (01:53→07:32)
[2023-01-31] MEDS: HYDROmorphone INJ 0.5 MG/0.5 ML SYR IV PRN (02:59)
[2023-01-31 04:43] LABS: Basophils # (auto) 0.04 K/uL (0-0.2); Basophils % (auto) 0.7 %; Eosinophils # (auto) 0.16 K/uL (0-0.50); Eosinophils % (auto) 2.8 %; Hematocrit (blood only) 38.1 % (42.0-52.0); Hemoglobin 13.2 g/dl (14.0-18.0); Immature Granulocytes # (auto) 0.02 K/uL (0.01-0.20); Immature Granulocytes % (auto) 0.3 %; Lymphocytes # (auto) 0.56 K/uL (1.2-3.4); Lymphocytes % (auto) 9.7 %; Mean Corpuscular Hemoglobin 29.1 pg (25.0-34.0); Mean Corpuscular Hgb Conc 34.6 g/dL (32.0-36.0); Mean Corpuscular Volume 83.9 fL (80.0-100.0); Mean Platelet Volume 9.1 fL (9.4-12.4); Monocytes # (auto) 0.52 K/uL (0.11-0.59); Neutrophils # (auto) 4.47 K/uL (1.40-6.50); Neutrophils % (auto) 77.5 %; Platelet Count 209 K/uL (130-400); RDW Coefficient of Variation 12.9 % (11.5-14.5); RDW Standard Deviation 38.3 fL (36.4-46.3); Red Blood Count 4.54 M/uL (4.70-6.10); White Blood Count 5.77 K/ul (4.8-10.8)
[2023-01-31 05:00] LABS: BUN Creatinine Ratio 25.9 (10-20); Creatinine Clr Calc Pharmacy 171.1 ml/min; Est GFR (African American) 136.8 ml/min; Est GFR (Non-African American) 118.1 ml/min; Potassium 4.1 mmol/L (3.5-5.1)
[2023-01-31] MEDS: ENOXAPARIN INJ 40 MG/0.4 ML SYR SQ SCH (08:01)
[2023-01-31] MEDS: ONDANSETRON INJ 2 MG/ML 2 ML VIAL IV SCH ×3 (08:01→16:18)
[2023-01-31] MEDS: METOPROLOL TARTRATE 25 MG TAB PO SCH ×3 (08:01→20:29)
[2023-01-31] MEDS: DOCUSATE SODIUM/SENNA 50/8.6MG TAB PO SCH ×2 (08:01→20:28)
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
[2023-01-31] MEDS ORDERED: MIRTAZAPINE TAB 15 MG TAB PO ONE (17:40)
[2023-02-01 07:56] LABS: Basophils # (auto) 0.02 K/uL (0-0.2); Basophils % (auto) 0.4 %; Eosinophils # (auto) 0.12 K/uL (0-0.50); Eosinophils % (auto) 2.2 %; Hematocrit (blood only) 39.9 % (42.0-52.0); Immature Granulocytes # (auto) 0.01 K/uL (0.01-0.20); Immature Granulocytes % (auto) 0.2 %; Lymphocytes # (auto) 0.94 K/uL (1.2-3.4); Lymphocytes % (auto) 16.9 %; Mean Corpuscular Hemoglobin 28.9 pg (25.0-34.0); Mean Corpuscular Hgb Conc 35.1 g/dL (32.0-36.0); Mean Corpuscular Volume 82.3 fL (80.0-100.0); Mean Platelet Volume 9.5 fL (9.4-12.4); Neutrophils # (auto) 3.96 K/uL (1.40-6.50); Neutrophils % (auto) 71.3 %; Platelet Count 225 K/uL (130-400); RDW Coefficient of Variation 12.9 % (11.5-14.5); RDW Standard Deviation 37.7 fL (36.4-46.3); Red Blood Count 4.85 M/uL (4.70-6.10); White Blood Count 5.55 K/ul (4.8-10.8)
[2023-02-01] MEDS: DOCUSATE SODIUM/SENNA 50/8.6MG TAB PO SCH ×2 (08:10→20:05)
[2023-02-01] MEDS: ONDANSETRON INJ 2 MG/ML 2 ML VIAL IV SCH ×3 (08:10→16:56)
[2023-02-01] MEDS: METOPROLOL TARTRATE 25 MG TAB PO SCH ×3 (08:10→20:05)
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
[2023-02-01 08:16] LABS: BUN Creatinine Ratio 28.8 (10-20); Calcium 9.2 mg/dl (8.6-10.3); Creatinine Clr Calc Pharmacy 168.5 ml/min; Est GFR (African American) 135.9 ml/min; Est GFR (Non-African American) 117.2 ml/min
[2023-02-01] MEDS: ENOXAPARIN INJ 40 MG/0.4 ML SYR SQ SCH (08:39)
--- NOTE | 2023-02-01 12:54 | XRay Report ---
XR KUB/Abdomen 1 view CLINICAL HISTORY: Watery stools, question constipation vs diarrhea TECHNIQUE: 1 view of the abdomen was obtained. Comparison: None available at the time of this dictation. FINDINGS: Lung bases are unremarkable. The osseous structures are grossly unremarkable. The bowel gas pattern i s nonobstructive. A moderate amount of stool is noted within the large bowel. IMPRESSION: Moderate stool burden without evidence of acute abnormalities. ACT 112: Negative or not required by law. Electronically signed by: Dillan Jordan M.D. 02/01/2023 12:53 PM
[2023-02-01] MEDS ORDERED: bisacodyL 10 MG SUPP PR PRN (17:22)
[2023-02-01] MEDS: MAGNESIUM HYDROXIDE SUSP 30 ML UDC PO PRN (20:00)
[2023-02-02] MEDS: ENOXAPARIN INJ 40 MG/0.4 ML SYR SQ SCH (07:57)
[2023-02-02] MEDS: MAGNESIUM HYDROXIDE SUSP 30 ML UDC PO PRN (07:57)
[2023-02-02] MEDS: DOCUSATE SODIUM/SENNA 50/8.6MG TAB PO SCH (07:58)
[2023-02-02] MEDS: ONDANSETRON INJ 2 MG/ML 2 ML VIAL IV SCH ×3 (07:58→17:19)
[2023-02-02] MEDS: METOPROLOL TARTRATE 25 MG TAB PO SCH ×2 (07:58→14:25)
[2023-02-02] MEDS ORDERED: POLYETHYLENE (MIRALAX) 17 GM PACK PO SCH (09:00)
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
== END 2023-02-02 17:44 | DRG 97 ==
LOC: ED 09:32 → SUATTDRO 18:47 → 4W 18:47 → 1E 01-15 09:21 → 2N 01-31 10:38